=== PATIENT | female | born 1970 | race Caucasian/White ===

== ENCOUNTER → 2016-11-01 | Outpatient (CLI) | payer OTHER ==
--- NOTE | 2016-11-02 04:31 | REP ---
Clinical: Pain . Technique: AP, lateral, bilateral oblique views 1st digit . Findings: The osseous structures and joint spaces are intact and normal. There is no evidence for acute fracture or dislocation. Surrounding soft tissues are unremarkable. No subcutaneous emphysema or radiodense foreign body. Impression: Normal examination. No acute fracture or dislocation. Signed by Mando Travis MD 11/02/2016 04:23 A
== END ==
LOC: M WUC 18:26
PROVIDERS: ATTEND Physician Assistant
DX: M25.541 Pain in joints of right hand (principal)

== ENCOUNTER → 2016-11-14 | Outpatient (CLI) | payer OTHER ==
[2016-11-14 17:33] LABS: BASO % 0.2 % (0.0-1.0); EOS # 0.2 K/mm3 (0.0-0.50); EOS % 1.8 % (0.0-3.0); LARGE UNSTAINED CELL # 0.2 K/mm3 (0.0-0.4); LARGE UNSTAINED CELL % 2.5 % (0.0-4.0); LYMPH % 21.6 % (24.0-44.0); MEAN CORPUSCULAR HEMOGLOBIN 27.2 pg (27.0-33.0); MEAN CORPUSCULAR HGB CONC 32.4 g/dl (32.0-36.5); MEAN CORPUSCULAR VOLUME 84.1 fl (80.0-96.0); MONO # 0.5 K/mm3 (0.0-0.8); MONO % 5.4 % (0.0-5.0); NEUTROPHILS # 6.4 K/mm3 (1.8-7.7); NEUTROPHILS % 68.5 % (36.0-66.0); PLATELET COUNT, AUTOMATED 345 k/mm3 (150-450); RED CELL DISTRIBUTION WIDTH 15.4 % (11.5-14.5); RETIC HEMOGLOBIN CONTENT CHr 27.5 PG (24-36); RETICULOCYTE ABSOLUTE ADVIA212 104 x10(9)/L (17-77); WHITE BLOOD COUNT 9.4 K/mm3 (4.0-10.0)
[2016-11-14 18:25] LABS: ANION GAP 7 MEQ/L (8-16); BLOOD UREA NITROGEN 8 MG/DL (7-18); CALCIUM LEVEL 8.2 MG/DL (8.5-10.1); CARBON DIOXIDE LEVEL 27 MEQ/L (21-32); CHLORIDE LEVEL 105 MEQ/L (98-107); CHOLESTEROL LEVEL 172 MG/DL (<200); CREATININE FOR GFR 0.64 MG/DL (0.55-1.02); FERRITIN 5 NG/ML (8-252); GLOMERULAR FILTRATION RATE > 60.0 (>58); GLUCOSE, FASTING 88 MG/DL (70-105); PERCENT SATURATION 4.7 % (13.2-37.4); POTASSIUM SERUM 4.2 MEQ/L (3.5-5.1); SODIUM LEVEL 139 MEQ/L (136-145); TOTAL IRON BINDING CAPACITY 486 UG/DL (250-450); TRIGLYCERIDES LEVEL 75 MG/DL (<150)
== END ==
LOC: M LAB 16:33
PROVIDERS: ATTEND Physician Assistant Medical
DX: Z00.00 Encounter for general adult medical examination without abnormal findings (principal)

== ENCOUNTER → 2016-11-23 | Outpatient (CLI) | payer OTHER ==
--- NOTE | 2016-11-23 11:33 | REP ---
Clinical: Decreased range of motion and impingement syndrome. Technique: Internal rotation, external rotation, and Y view. Findings: Very mild cortical irregularity at the acromion process and acromioclavicular joint is appreciated. The glenohumeral joint is intact and relatively normal. The subacromial space is normal. No periarticular calcifications are identified. Impression: Mild age-related changes. No periarticular calcifications, tendinous calcifications, or narrowing of the subacromial space. Signed by Mando Travis MD 11/23/2016 11:24 A
== END ==
LOC: M WUC 11:06
PROVIDERS: ATTEND Physician Assistant Medical
DX: M75.41 Impingement syndrome of right shoulder (principal); M19.011 Primary osteoarthritis, right shoulder

== ENCOUNTER 2017-08-30 00:19 | Emergency (ER) | payer OTHER ==
[2017-08-30] MEDS: hydroCHLOROthiazide 25 MG TAB PO (01:06)
[2017-08-30] MEDS: LISINOPRIL 20 MG TAB PO (01:06)
== END 2017-08-30 02:13 | disposition home or self-care (01) ==
LOC: M ED 00:19
DX: H61.22 Impacted cerumen, left ear (principal); J06.9 Acute upper respiratory infection, unspecified; I10 Essential (primary) hypertension; F17.210 Nicotine dependence, cigarettes, uncomplicated; Z79.84 Long term (current) use of oral hypoglycemic drugs; Z79.899 Other long term (current) drug therapy; Z91.19 Patient's noncompliance with other medical treatment and regimen; Z88.1 Allergy status to other antibiotic agents
CPT/HCPCS: 99283

== ENCOUNTER → 2018-10-21 | Outpatient (CLI) | payer BC ==
[~2018-10-21] MED LIST: ATEN100T; FLON1SPR; LISI-538; LISI20TA3 PO; LISINOP/HCTZ; METF500T13; SERT-155
[2018-10-21 12:21] LABS: BASO % 0.4 % (0.0-1.0); EOS # 0.3 10^3/uL (0.0-0.50); EOS % 2.9 % (0.0-3.0); HEMATOCRIT 45.3 % (36.0-47.0); HEMOGLOBIN 14.1 g/dl (12.0-15.5); LYMPH # 1.3 10^3/uL (1.5-4.5); LYMPH % 14.8 % (24.0-44.0); MEAN CORPUSCULAR HEMOGLOBIN 26.4 pg (27.0-33.0); MEAN CORPUSCULAR HGB CONC 31.1 g/dl (32.0-36.5); MEAN CORPUSCULAR VOLUME 84.7 fl (80.0-96.0); MONO # 0.8 10^3/uL (0.0-0.8); MONO % 8.8 % (0.0-5.0); NEUTROPHILS # 6.2 10^3/uL (1.8-7.7); NEUTROPHILS % 72.7 % (36.0-66.0); PLATELET COUNT, AUTOMATED 293 10^3/uL (150-450); RED BLOOD COUNT 5.35 10^6/uL (4.00-5.40); WHITE BLOOD COUNT 8.5 10^3/uL (4.0-10.0)
[2018-10-21 12:52] LABS: ALBUMIN 3.3 GM/DL (3.2-5.2); ALT/SGPT 25 U/L (12-78); BILIRUBIN,TOTAL 0.2 MG/DL (0.2-1.0); BLOOD UREA NITROGEN 11 MG/DL (7-18); CALCIUM LEVEL 8.7 MG/DL (8.5-10.1); CARBON DIOXIDE LEVEL 26 MEQ/L (21-32); CHLORIDE LEVEL 107 MEQ/L (98-107); CREATININE FOR GFR 0.84 MG/DL (0.55-1.30); GLOMERULAR FILTRATION RATE > 60.0 (>58); GLUCOSE, FASTING 210 MG/DL (70-100); POTASSIUM SERUM 4.6 MEQ/L (3.5-5.1); SODIUM LEVEL 138 MEQ/L (136-145); TOTAL PROTEIN 6.8 GM/DL (6.4-8.2)
== END ==
LOC: M WUC 08:53
PROVIDERS: ATTEND Physician Assistant
DX: I10 Essential (primary) hypertension (principal)

== ENCOUNTER 2019-03-22 14:49 | Inpatient (IN) | payer BC ==
[~2019-03-22] VITALS: Ht 152.4 cm; Wt 105.7 kg
[~2019-03-22 14:49] MED LIST changes: +LISI20TA20 PO; -LISI20TA3 PO
[2019-03-22] MEDS ORDERED: APAP325T4 PO (15:04)
[2019-03-22] MEDS ORDERED: NAPR220C14 PO (15:04)
[2019-03-22 15:17] LABS: BASO % 0.3 % (0.0-1.0); EOS # 0.2 10^3/uL (0.0-0.5); EOS % 2.1 % (0.0-3.0); HEMATOCRIT 43.1 % (36.0-47.0); LYMPH # 2.2 10^3/uL (1.5-5.0); LYMPH % 19.4 % (24.0-44.0); MEAN CORPUSCULAR HEMOGLOBIN 28.7 pg (27.0-33.0); MEAN CORPUSCULAR HGB CONC 32.5 g/dl (32.0-36.5); MEAN CORPUSCULAR VOLUME 88.3 fl (80.0-96.0); MONO # 0.8 10^3/uL (0.0-0.8); MONO % 6.8 % (0.0-5.0); NEUTROPHILS # 8.2 10^3/uL (1.5-8.5); NEUTROPHILS % 71.1 % (36.0-66.0); PLATELET COUNT, AUTOMATED 346 10^3/uL (150-450); RED BLOOD COUNT 4.88 10^6/uL (4.00-5.40); WHITE BLOOD COUNT 11.5 10^3/uL (4.0-10.0)
[2019-03-22] MEDS ORDERED: LABETALOL HCL 100 MG/20 ML VIAL IV STA (15:22)
[2019-03-22] MEDS ORDERED: LABETALOL 100 MG TAB PO ONE (15:30)
[2019-03-22] MEDS: LABETALOL HCL 100 MG/20 ML VIAL IV PRN ×4 (16:15→17:16)
[2019-03-22 16:24] LABS: BLOOD UREA NITROGEN 9 MG/DL (7-18); CALCIUM LEVEL 8.6 MG/DL (8.5-10.1); CARBON DIOXIDE LEVEL 23 MEQ/L (21-32); CHLORIDE LEVEL 108 MEQ/L (98-107); CK-MB VALUE MASS 3.6 NG/ML (<3.6); CPK CREATINE PHOSPHOKINASE 79 U/L (26-192); ETHYL ALCOHOL (ETHANOL) < 0.003 % (0.000-0.010); GLOMERULAR FILTRATION RATE > 60.0 (>58); GLUCOSE, FASTING 160 MG/DL (70-100); MB/CK RELATIVE INDEX 4.56 (< OR =4); POTASSIUM SERUM 4.3 MEQ/L (3.5-5.1); SODIUM LEVEL 139 MEQ/L (136-145); TROPONIN I 0.61 NG/ML (< 0.10)
[2019-03-22] MEDS ORDERED: ASPIRIN 81 MG CHEW TABLET PO ONE (16:45)
[2019-03-22 17:46] LABS: CK-MB VALUE MASS 3.3 NG/ML (<3.6); MB/CK RELATIVE INDEX 5.59 (< OR =4); TROPONIN I 0.66 NG/ML (< 0.10)
[2019-03-22 17:58] LABS: AMPHETAMINES LEVEL URINE NEGATIVE (NEGATIVE); BARBITURATES URINE NEGATIVE (NEGATIVE); BENZODIAZEPINES URINE NEGATIVE (NEGATIVE); CANNABINOIDS URINE POSITIVE (NEGATIVE); COCAINE METABOLITE URINE NEGATIVE (NEGATIVE); METHADONE URINE NEGATIVE (NEGATIVE); OPIATES URINE NEGATIVE (NEGATIVE); PHENCYCLIDINE URINE NEGATIVE (NEGATIVE); TOTAL PROTEIN,RANDOM URINE 39.5 MG/DL (0.0-12.0)
[2019-03-22] MEDS ORDERED: BENA25CA4 PO (18:14)
[2019-03-22] MEDS ORDERED: [UNRECOGNIZED DRUG - CODE] PO (18:14)
[2019-03-22] MEDS ORDERED: MOM 30ML SUSPENSION UDC PO PRN (18:45)
[2019-03-22] MEDS ORDERED: **hydrALAZINE** 10 MG TAB PO ONE (18:45)
[2019-03-22] MEDS ORDERED: LABETALOL HCL 100 MG/20 ML VIAL IV PRN (18:45)
[2019-03-22] MEDS ORDERED: diphenhydrAMINE 25 MG CAP PO PRN (18:45)
[2019-03-22] MEDS ORDERED: MAALOX 30 ML SUSP *UDC PO PRN (18:45)
[2019-03-22] MEDS ORDERED: ACETAMINOPHEN TAB 650MG DOSE (2X325MG) PO PRN (18:45)
--- NOTE | 2019-03-22 19:48 | REP ---
REASON: Chest pain. The technique utilized in obtaining the radiograph has magnified the cardiac silhouette and accentuated the interstitial markings. The superior mediastinal structures are midline. The cardiac silhouette is unremarkable in size, shape, and position. The diaphragmatic surfaces of the lungs are regular, and the costophrenic angles are clear. The pulmonary quijano are clear. The imaged osseous structures are intact. IMPRESSION: There is no acute cardiopulmonary disease. Electronically Signed by Ming Conroy DO 03/23/2019 10:44 A
[2019-03-22] MEDS: CALCIPOTRIENE CREAM 0.005% 60GM TOP SCH (21:00)
[2019-03-22] MEDS: HumaLOG INSULIN (NovoLOG) PER UNIT SC SCH (21:00)
[2019-03-22] MEDS: BETAMETHASONE DIP 0.05% OINT 15 GM TOP SCH (21:00)
[2019-03-22] MEDS: DOCUSATE SODIUM 100 MG CAP PO SCH (21:00)
[2019-03-22 21:26] LABS: HEMOGLOBIN A1c 7.7 %
[2019-03-22] MEDS: HEPARIN SOD (PORCINE) 5000 UNITS/ML VIAL SC SCH (21:30)
[2019-03-22] MEDS: LABETALOL 100 MG TAB PO SCH (21:32)
[2019-03-22 22:00] VITALS: O2SAT 96
[2019-03-22] MEDS ORDERED: NS 500 ML IV PRN (22:30)
[2019-03-22] MEDS ORDERED: NS 500 ML IV ONE ×2 (22:30→23:30)
[2019-03-22 23:00] VITALS: O2SAT 96
[2019-03-22 23:30] VITALS: BP 148/65
[2019-03-23] VITALS (30 sets, daily range): BP systolic 176–221; BP diastolic 82–102; PULSE 82; O2SAT 90–98
[2019-03-23] MEDS ORDERED: MORPHINE 4 MG/ML 1ML VIAL/SYRINGE (J2270) IV ONE (02:15)
--- NOTE | 2019-03-23 04:02 | HPEPDOC ---
General Date of Admission 03/22/19 Date of Service: Mar 22, 2019 Primary Care Physician: Azeb Vazquez Other Providers Dr. Carmine Han Satellite Dish Technician consult/manage Attending Physician: BRADLEY HELTON MD Chief Complaint The patient is a 48-year-old female admitted with a reason for visit of High B/P. Source: Patient, RN/MD, RN notes reviewed Exam Limitations: No limitations Timing/Duration: 24 hours, Changing over time Severity: Moderate Associated Symptoms: Chest Pain, Loss of appetite, Nausea, Dizziness History of Present Illness 48-year-old female arrives at [facility] ED via EMS on stretcher with complaints of worsening chest pain, pressure that started last night when she was at work. She states that she took an Aleve when she felt the pressure last night, which usually alleviates her pain, but he did not. The pain radiated to her shoulder during the night after she made it home from work and she reports that she cannot sleep more than 3 hours as the pain intensified. She then decided to call 911 for help and was brought into the ED. She denies having vomiting, heart palpitations, numbness and tingling in her hands and feet, and loss of consciousness. She has significant medical history of essential hyp ertension, seasonal rhinitis, diabetes mellitus, anxiety and depression, nicotine use, and GERD. Upon arrival in ED, patient's blood pressure 245/113, she was given labetalol 20 mg IV push, EKG shows incomplete right bundle branch block. In reviewing patient's chart, she has been prescribed atenolol, lisinopril/hydrochlorothiazide, metformin, sertraline, for her chronic comorbidities. Patient has not taken any medications for several months. She just decided not to take them. Per patient report. Due to these multiple factors and patient's current status. Cardiac consult with Dr. Carmine Han for recommendations, patient will be admitted to PCU telemetry and continue pulse oximetry for Hypertensive crisis under hospitalist services for ongoing evaluation. Home Medications Scheduled PRN Acetaminophen (Acetaminophen) 325 Mg Tablet, 975 MG PO Q6H PRN for BACK PAIN, (Reported) Diphenhydramine HCl (Benadryl) 25 Mg Capsule, 50 MG PO QHS PRN for SLEEP, (Reported) Naproxen Sodium (Naproxen Sodium) 220 Mg Tablet, 440 MG PO DAILY PRN for BACK PAIN, (Reported) Allergies Coded Allergies: erythromycin base (Verified Adverse Reaction, Unknown, nausea, vomiting, 03/22/19) Past Medical History Medical History essential hypertension, seasonal rhinitis, diabetes mellitus, anxiety and depression, nicotine use, and GERD. Surgical History Tubal ligation, cone biopsy, cholecystectomy Family History Significant Family History: Diabetes (Mom), Heart disease ( Mom [place] at age 52), Hypertension (Mom) Social History * Smoker: current smoker, less than 1 pack/day (3/4 pack of cigarettes per day), cigarettes Drugs: marijuana Pets in the home: Dog(s) (1), Cat(s) (5) Psychosocial History: Anxiety, Rhys SI and HI, Depression A-FIB/CHADSVASC A-FIB History Current/History of A-Fib/PAF?: No Review of Systems Constitutional: Reports: Malaise Eyes: Reports: Pain ENT: Reports: Head Aches Skin: Reports: Rash (bilateral forearms, red, thick), Itching, Dry Pulmonary: Reports: Cough Cardiovascular: Reports: Chest Pain, Other Symptoms (, chest pressure) Gastrointestinal: Reports: Nausea Genitourinary: Denies: Dysuria, Frequency, Incontinence, Hematuria, Retention, Other Symptoms Hematologic: Denies: Bruising, Bleeding Excessively, Petecchia, Purpura, Enlarged Lymph Nodes, Other Hematologic Endocrine: Denies: Polydipsia, Polyphagia, Polyuria, Heat Intolerance, Cold Intolerance, Other Endocrine Sx Musculoskeletal: Reports: Back Pain Psych: Reports: Anxiety, Depression Physical Examination General Exam: Positive: Alert, Cooperative, Moderate Distress Eye Exam: Positive: PERRLA, Conjunctiva & lids normal, Sclera icteric ENT Exam: Positive: Atraumatic, Mucous membr. moist/pink, Pharynx Normal, Tongue Midline, Nares Patent, Other ENT (, top teeth missing. Remote bottom teeth rotten black, some missing multiple dental caries) Neck Exam: Positive: Supple, +2 carotid pulse wo bruit Chest Exam: Positive: Wheezing, Diminished ( right lower lobe) Heart Exam: Positive: Rate Normal, Normal S1, Normal S2 Abdomen Exam: Positive: Normal bowel sounds, Soft, Other (protuberant) Extremity Exam: Positive: Normal pulses Skin Exam: Positive: Nl turgor and temperature, Rash (plaque psoriasis, bilateral upper arms,), Pruritus Neuro Exam: Positive: Normal Gait, Normal Speech, Cranial Nerves 3-12 NL Psych Exam: Positive: Anxiety, Oriented x 3 Vital Signs Vital Signs Date Time Temp Pulse Resp B/P (MAP) Pulse Ox O2 Delivery O2 Flow Rate FiO2 03/22/19 18:51 74 170/98 (122) 95 Room Air 03/22/19 14:49 98.4 20 Laboratory Data Labs 24H Laboratory Tests 2 03/22/19 15:07: Immature Granulocyte % (Auto) 0.3, White Blood Count 11.5H, Red Blood Count 4.88, Hemoglobin 14.0, Hematocrit 43.1, Mean Corpuscular Volume 88.3, Mean Corpuscular Hemoglobin 28.7, Mean Corpuscular Hemoglobin Concent 32.5, Red Cell Distribution Width 14.8H, Platelet Count 346, Neutrophils (%) (Auto) 71.1H, Lymphocytes (%) (Auto) 19.4L, Monocytes (%) (Auto) 6.8H, Eosinophils (%) (Auto) 2.1, Basophils (%) (Auto) 0.3, Neutrophils # (Auto) 8.2, Lymphocytes # (Auto) 2.2, Monocytes # (Auto) 0.8, Eosinophils # (Auto) 0.2, Basophils # (Auto) 0.0, Nucleated Red Blood Cells % (auto) 0.0, Anion Gap 8, Glomerular Filtration Rate > 60.0, Blood Urea Nitrogen 9, Creatinine 0.80, Sodium Level 139, Potassium Leve l 4.3, Chloride Level 108H, Carbon Dioxide Level 23, Calcium Level 8.6, Total Creatine Kinase 79, Creatine Kinase MB 3.6, Creatine Kinase MB Relative Index 4.56H, Troponin I 0.61H, Thyroid Stimulating Hormone (TSH) 1.460, Ethyl Alcohol Level < 0.003 03/22/19 17:07: Total Creatine Kinase 59, Creatine Kinase MB 3.3, Creatine Kinase MB Relative Index 5.59H, Troponin I 0.66H 03/22/19 17:28: Urine Random Total Protein 39.5H, Urine Amphetamines Screen NEGATIVE, Urine Benzodiazepines Screen NEGATIVE, Urine Opiates Screen NEGATIVE, Urine Methadone Screen NEGATIVE, Urine Barbiturates Screen NEGATIVE, Urine Phencyclidine Screen NEGATIVE, Urine Cocaine Metabolite Screen NEGATIVE, Urine Cannabinoids Screen POSITIVEH CBC/BMP Laboratory Tests 03/22/19 15:07 Red Blood Count 4.88, Mean Corpuscular Volume 88.3, Mean Corpuscular Hemoglobin 28.7, Mean Corpuscular Hemoglobin Concent 32.5, Red Cell Distribution Width 14.8 H, Neutrophils (%) (Auto) 71.1 H, Lymphocytes (%) (Auto) 19.4 L, Monocytes (%) (Auto) 6.8 H, Eosinophils (%) (Auto) 2.1, Basophils (%) (Auto) 0.3, Neutrophils # (Auto) 8.2, Lymphocytes # (Auto) 2.2, Monocytes # (Auto) 0.8, Eosinophils # (Auto) 0.2, Basophils # (Auto) 0.0, Calcium Level 8.6, Total Creatine Kinase 79 Echocardiogram EKG sinus rhythm with possible right ventricular delay conduction, possible anterior myocardial infarction. Ventricular rate 91, AK interval 172, QRS 123, PRT axis 35 75 55. Assessment/Plan 48-year-old female arrives at [facility] ED via EMS on stretcher with complaints of worsening chest pain, pressure that started last night when she was at work. She states that she took an Aleve when she felt the pressure last night, which usually alleviates her pain, but he did not. The pain radiated to her shoulder during the night after she made it home from work and she reports that she cannot sleep more than 3 hours as the pain intensified. She then decided to call 911 for help and was brought into the ED. Hypertensive Crisis/Uncontrolled -Acute Dr. Marialuisa Han Cardiology consult/manage (Thank you Dr. Lou for accepting the consult for our patient and I thank you in advance for your recommendations).*Spoke to Dr. Han at 1833 he will see patient on 03/23/19 in the AM. Telemetry with continuous pulse oximetry Labs: CBC,CMP, Urine toxicology screen, Trending Troponin's, Cardiac profile, repeat EKG x 2 (03/23/19&03/24/19), FS Glucose 136 at bedside, CK-repeat Monitor Blood pressure and take Manual BP (blood pressure reads in both arms for BP >160/100). GOAL SBP FOR FIRST 48 HOURS 180-190 (10-20% OF ARRIVAL SBP 245). Labetalol 20 mg slow IVP for SBP >190 keep SBP (180-190) x 48 hours Labetalol 50 mg Po q 12 hours; then 175-180 gradually decreasing patients BP to reduce risk for ischemic stroke ASA EC 325 mg Po daily, Apresoline 20 mg Po as needed for SBP >170 Echocardiogram in AM, BNP Initiate Bowel regimen, multivitamin Hypoxia-Acute Supplemental O2-2Liters per nasal cannula with goal O2 saturation 88-92% Asthma Uncontrolled-Chronic DuoNeb nebulizer treatment q 6 hours prn shortness of breath, coughing, and or wheezing Angina Pectoris (Chest Pain)-Acute Morphine Sulphate 2 mg IV Push slow q 4 hours s needed Nitro Paste 1/4 strip Labs: Lactic Acid, Mag, Phos Depression with Anxiety-Chronic Restart patient on Sertraline but at a lower dose than 100mg daily. Start at 25 mg po daily x 2 weeks then gradually increase. Patient would benefit from Psychiatric referral for medication management. PHQ2 4, PHQ 9 17, VICKI 7 17 (Positive for Depression and Anxiety). Need Outpatient counseling Diabetes Mellitus Type II-Chronic POC Glucose AC/HS Sliding scale Insulin AC/HS Plaque Psoriasis-Chronic- Topical Betamethasone Dipro 0.05% ointment apply daily x 14 days then will re- assess. If no improvement then twice a day. F/U with new PCP once you have established care with one. GERD-Chronic Protonix DR 40 mg Po daily Seasonal Allergic Rhinitis-Chronic Flonase 50 mcg 1 spray each nostril twice a day; saline gel apply small amount to each nares QID as needed for moisture; Loratadine 10 mg PO daily Nicotine abuse-Chronic Discussed smoking cessation with patient [id number] 5 minutes. Discussed the pros and cons of nicotine, educated patient on the effects of nicotine on heart causing heart disease, increased blood pressure, increased risk for heart attack and stroke, more so when women who are obese and with positive family history of heart disease and high cholesterol. Increased risk of lung disease such as lung cancer, COPD and/or asthma each cigarette smoke. For the amount of time in years. No patient currently smokes three fourths pack cigarettes daily. In-house smoking affects pain inhibits pain medication requirement, more pain medication in order for it to be effective at 16 attested receptor sites. Patient agrees to use nicotine patch while inpatient. Currently, is considering to stop smoking she tried Chantix and had horrible night terrors of killing family members. Nicotine patch 21 mcg topically apply daily. Prognosis: Fair DVT Prophylaxis: Heparin SC 5000 TID; SCD's alternating with TEDs BLE Discharge: Pending Problems (1) Hypertensive emergency without congestive heart failure Status: Acute Plan / VTE VTE Prophylaxis Ordered?: Yes VTE Exclusion Mechanical Proph: Maverick Lower Ex DVT VTE Exclusion Pharmacological: N/A:VTE Prophy Ordered Plan IVF: Initiate (bolus 1 L normal saline) Diet: Advance Activity: Encourage Ambulation Pt and Family Services: Home Care Diagnostics: Check Labs, Repeat Labs in AM, Xrays, TTE Anticipated Discharge: Home T[place] Mar 22, 2019 18:55
[2019-03-23] MEDS ORDERED: SODIUM CHLORIDE 0.9% NASAL GEL 15GM (AYR) PRN (04:15)
[2019-03-23] MEDS: HEPARIN SOD (PORCINE) 5000 UNITS/ML VIAL SC SCH ×3 (05:45→22:00)
[2019-03-23 05:49] LABS: HEMATOCRIT 39.3 % (36.0-47.0); HEMOGLOBIN 12.6 g/dl (12.0-15.5); MEAN CORPUSCULAR HEMOGLOBIN 28.9 pg (27.0-33.0); MEAN CORPUSCULAR HGB CONC 32.1 g/dl (32.0-36.5); MEAN CORPUSCULAR VOLUME 90.1 fl (80.0-96.0); PLATELET COUNT, AUTOMATED 290 10^3/uL (150-450); RED BLOOD COUNT 4.36 10^6/uL (4.00-5.40); WHITE BLOOD COUNT 9.2 10^3/uL (4.0-10.0)
[2019-03-23 06:25] LABS: ALBUMIN 2.7 GM/DL (3.2-5.2); ALT/SGPT 23 U/L (12-78); BILIRUBIN,TOTAL 0.3 MG/DL (0.2-1.0); BLOOD UREA NITROGEN 12 MG/DL (7-18); CALCIUM LEVEL 8.2 MG/DL (8.5-10.1); CARBON DIOXIDE LEVEL 26 MEQ/L (21-32); CHLORIDE LEVEL 108 MEQ/L (98-107); CHOLESTEROL LEVEL 150 MG/DL (<200); CHOLESTEROL RISK RATIO 4.545 (<5); CREATININE FOR GFR 0.73 MG/DL (0.55-1.30); GLOMERULAR FILTRATION RATE > 60.0 (>58); GLUCOSE, FASTING 128 MG/DL (70-100); HDL CHOLESTEROL 33 MG/DL (>40); LDL CHOLESTEROL 85 MG/DL (<100); MAGNESIUM LEVEL 1.9 MG/DL (1.8-2.4); NON-HDL-C 117 MG/DL; POTASSIUM SERUM 4.3 MEQ/L (3.5-5.1); SODIUM LEVEL 139 MEQ/L (136-145); TOTAL PROTEIN 6.5 GM/DL (6.4-8.2); TRIGLYCERIDES LEVEL 160 MG/DL (<150)
[2019-03-23 07:55] LABS: NT-PRO BNP 1018 PG/ML (<125)
[2019-03-23] MEDS ORDERED: amLODIPine 5 MG TAB PO SCH (08:00)
[2019-03-23] MEDS: DOCUSATE SODIUM 100 MG CAP PO SCH ×2 (08:46→21:00)
[2019-03-23] MEDS: SERTRALINE HCL 25 MG TABLET PO SCH (08:46)
[2019-03-23] MEDS: ASPIRIN ENTERIC 325 MG TAB PO SCH (08:46)
[2019-03-23] MEDS: NICOTINE 21MG/24HR 1 EA TRANSDERMAL TD SCH (08:47)
[2019-03-23] MEDS: HumaLOG INSULIN (NovoLOG) PER UNIT SC SCH ×4 (08:48→21:00)
[2019-03-23] MEDS: CALCIPOTRIENE CREAM 0.005% 60GM TOP SCH ×2 (08:49→21:57)
[2019-03-23] MEDS: LABETALOL 100 MG TAB PO SCH (09:00)
[2019-03-23] MEDS ORDERED: LISINOPRIL 10 MG TAB PO SCH (10:45)
[2019-03-23] MEDS ORDERED: hydroCHLOROthiazide 12.5 MG CAPSULE PO SCH ×2 (11:00→18:30)
[2019-03-23] MEDS ORDERED: SLF 3 ML SYR IV PRN (11:00)
[2019-03-23] MEDS: SLF 3 ML SYR IV SCH ×2 (14:31→22:00)
[2019-03-23] MEDS: LISINOPRIL 40 MG TAB PO SCH (18:53)
[2019-03-23] MEDS: BETAMETHASONE DIP 0.05% OINT 15 GM TOP SCH (21:57)
[2019-03-23] MEDS ORDERED: amLODIPine 5 MG TAB PO ONE (23:30)
--- NOTE | 2019-03-23 23:41 | IPNPDOC ---
Text Note Date of Service The patient was seen on 03/23/19. NOTE Subjective: Feels better than yesterday No chest pain, no shortness of breath, no abdominal pain, no headache or vision changes Rest of 12 point review of systems was negative. Objective: General: Morbidly obese Skin: Significant plaques with some surrounding erythema on scattered surfaces and coalese in large patches/areas Chest: CTAB Cardiac: RRR, no mrg Abd: Obese, soft, non tender, normoactive sounds Ext: mild edema, WWP Labs" see below, reviewed Imaging: Reviewed Assessment 48-year-old woman who presented to the ED with chest pain/pressure that began at work and found to be in hypertensive emergency with severe hypertension in the setting of medication non compliance with her HTN, DM, psoriasis, GERD, depression and anxiety. Hypertensive emergency: -Given labetalol overnight and some fluids as well, hypertensive this AM, switched to lisinopril 20/HCTZ12.5 will mild effect and return of severe hypertension after a few hours -Will try lisinopril 40/HCTZ25 BID, otherwise will return to labetalol gtt if necessary -Cardiology consulted, agrees it is due to non compliance -Telemetry with continuous pulse oximetry -follow up Echocardiogram -nitro paste / strip for pain PRN Hypoxemia -Supplemental O2-2Liters per nasal cannula with goal O2 saturation 88-92% -May require a loop diuretic for volume overload Asthma Uncontrolled-Chronic DuoNeb nebulizer treatment q 6 hours prn shortness of breath, coughing, and or wheezing Depression with Anxiety-Chronic Was restarted on Sertraline but at a lower dose than 100mg daily. Start at 25 mg po daily x 2 weeks then gradually increase. Patient would benefit from Psychiatric referral for medication management. PHQ2 4, PHQ 9 17, VICKI 7 17 (Positive for Depression and Anxiety). Need Outpatient counseling Diabetes Mellitus Type II-Chronic POC Glucose AC/HS Sliding scale Insulin AC/HS Plaque Psoriasis-Chronic- Topical Betamethasone Dipro 0.05% ointment apply daily x 14 days then will re- assess. If no improvement then twice a day. F/U with new PCP once you have established care GERD-Chronic Protonix DR 40 mg Po daily Seasonal Allergic Rhinitis-Chronic Flonase 50 mcg 1 spray each nostril twice a day; saline gel apply small amount to each nares QID as needed for moisture; Loratadine 10 mg PO daily Nicotine abuse-Chronic Discussed smoking cessation with patient for 10 minutes while we discussed non compliance of medications and the events that led her to this moment. She reported chantix having precipitated night terrors prior and so she stopped. Nicotine patch 21 mcg topically apply daily. Prognosis: Fair DVT Prophylaxis: Heparin SC 5000 TID; SCD's alternating with TEDs BLE Discharge: Pending clinical improvement VS,Fishbone, I+O VS, Fishbone, I+O Laboratory Tests 03/23/19 05:42 Red Blood Count 4.36, Mean Corpuscular Volume 90.1, Mean Corpuscular Hemoglobin 28.9, Mean Corpuscular Hemoglobin Concent 32.1, Red Cell Distribution Width 15.0 H, Calcium Level 8.2 L, Aspartate Amino Transf (AST/SGOT) 27, Alanine Aminotransferase (ALT/SGPT) 23, Alkaline Phosphatase 94, Total Bilirubin 0.3, Triglycerides Level 160 H, LDL Cholesterol 85, Total Protein 6.5, Albumin 2.7 L Vital Signs Date Time Temp Pulse Resp B/P (MAP) Pulse Ox O2 Delivery O2 Flow Rate FiO2 03/23/19 20:30 185/98 (127) 03/23/19 20:00 97.3 84 20 96 03/23/19 18:00 Room Air 03/23/19 05:00 2.0 I&O- Last 24 Hours up to 6 AM 03/23/19 06:00 Intake Total 1120 ml Output Total 225 ml Balance 895 ml KERRI JOHNSTON MD Mar 23, 2019 23:41
[2019-03-24] VITALS (24 sets, daily range): BP systolic 140–228; BP diastolic 58–98; O2SAT 87–98
--- NOTE | 2019-03-24 04:21 | ECGEPIP ---
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
--- NOTE | 2019-03-24 04:24 | ECGEPIP ---
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
[2019-03-24 05:39] LABS: HEMATOCRIT 40.1 % (36.0-47.0); HEMOGLOBIN 12.8 g/dl (12.0-15.5); MEAN CORPUSCULAR HEMOGLOBIN 27.8 pg (27.0-33.0); MEAN CORPUSCULAR HGB CONC 31.9 g/dl (32.0-36.5); MEAN CORPUSCULAR VOLUME 87.2 fl (80.0-96.0); PLATELET COUNT, AUTOMATED 332 10^3/uL (150-450)
[2019-03-24 05:55] LABS: BLOOD UREA NITROGEN 9 MG/DL (7-18); CALCIUM LEVEL 8.5 MG/DL (8.5-10.1); CARBON DIOXIDE LEVEL 24 MEQ/L (21-32); CHLORIDE LEVEL 104 MEQ/L (98-107); CREATININE FOR GFR 0.73 MG/DL (0.55-1.30); GLOMERULAR FILTRATION RATE > 60.0 (>58); GLUCOSE, FASTING 147 MG/DL (70-100); POTASSIUM SERUM 3.8 MEQ/L (3.5-5.1); SODIUM LEVEL 137 MEQ/L (136-145)
[2019-03-24] MEDS: SLF 3 ML SYR IV SCH ×3 (07:29→22:33)
[2019-03-24] MEDS: HEPARIN SOD (PORCINE) 5000 UNITS/ML VIAL SC SCH ×3 (07:29→22:33)
[2019-03-24] MEDS ORDERED: amLODIPine 10 MG TAB PO ONE (08:00)
[2019-03-24] MEDS: SERTRALINE HCL 25 MG TABLET PO SCH (08:13)
[2019-03-24] MEDS: LISINOPRIL 40 MG TAB PO SCH (08:13)
[2019-03-24] MEDS: HumaLOG INSULIN (NovoLOG) PER UNIT SC SCH ×4 (08:14→21:00)
[2019-03-24] MEDS: CALCIPOTRIENE CREAM 0.005% 60GM TOP SCH ×2 (08:14→21:06)
[2019-03-24] MEDS: DOCUSATE SODIUM 100 MG CAP PO SCH ×2 (08:14→21:00)
[2019-03-24] MEDS: ASPIRIN ENTERIC 325 MG TAB PO SCH (08:14)
[2019-03-24] MEDS: NICOTINE 21MG/24HR 1 EA TRANSDERMAL TD SCH (08:14)
[2019-03-24] MEDS ORDERED: hydrALAZINE INJ 20 MG/ML VIAL IV STA ×2 (08:30→11:54)
--- NOTE | 2019-03-24 08:41 | ECGEPIP ---
[facility] Test Date: 2019-03-23 Pat Name: RIANNA HAYES Department: Room: [place] [address] Gender: Female Prompt Care Rn: PETRA : 1970 Requested By: TWIN SALVADOR Order Number: [id number] Reading MD: Can Jiang Measurements Intervals [place] Rate: 77 P: 59 FL: 181 QRS: 78 QRSD: 117 T: 97 QT: 410 QTc: 467 Interpretive Statements SINUS RHYTHM Incomplete right bundle branch block NONSPECIFIC T-WAVE ABNORMALITY Similar to tracing done 03-22-19 Electronically Signed on 03-24-2019 8:41:31 EDT by Can Jiang
[2019-03-24] MEDS ORDERED: LABETALOL 100 MG TAB PO SCH (09:00)
[2019-03-24] MEDS ORDERED: FUROSEMIDE 40 MG/4 ML VIAL (J1940) IV ONE ×2 (09:00→16:00)
[2019-03-24] MEDS ORDERED: amLODIPine 5 MG TAB PO SCH (09:00)
[2019-03-24] MEDS ORDERED: hydroCHLOROthiazide 25 MG TAB PO SCH (09:00)
--- NOTE | 2019-03-24 09:10 | ECGEPIP ---
[facility] Test Date: 2019-03-24 Pat Name: RIANNA HAYES Department: Room: [place] [address] Gender: Female Relationship Advisor: PETRA : 1970 Requested By: TWIN SALVADOR Order Number: [id number] Reading MD: Can Jiang Measurements Intervals [place] Rate: 66 P: 49 NC: 180 QRS: 72 QRSD: 114 T: 85 QT: 448 QTc: 471 Interpretive Statements SINUS RHYTHM INCOMPLETE RIGHT BUNDLE BRANCH BLOCK NONSPECIFIC T-WAVE ABNORMALITY Similar to tracing done 03-23-19 Electronically Signed on 03-24-2019 9:09:52 EDT by Can Jiang
[2019-03-24] MEDS ORDERED: hydrALAZINE INJ 20 MG/ML VIAL IV SCH ×2 (13:00→17:00)
[2019-03-24] MEDS: NITROGLYCERIN 2% OINT 1 GM *U/D* PKT TOP SCH ×3 (13:56→21:00)
--- NOTE | 2019-03-24 14:37 | IPN ---
DATE: 03/24/2019 SUBJECTIVE: The patient denies any chest pain, pressure, or tightness, headaches, change in vision despite blood pressure of 200. She currently does not further evaluation for renal artery stenosis and declined a renal ultrasound with Doppler, saying that she does not her medications at home and that is the major reason why her blood pressure is uncontrolled. 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 Telemetry was unremarkable. OBJECTIVE: PHYSICAL EXAMINATION: VITALS: Temperature 97.1, pulse 69, respiratory rate 18, blood pressure 210/102, 97% on room air. The patient has some psoriatic plaques, erythematous lesions on the face upper extremities, legs, abdomen and back. She is obese with a BMI of 46. Anicteric sclera and no jaundice. She has no use of respiratory accessory muscles. Face is symmetric. No jugular venous distension thyromegaly or carotid bruits. Lungs are clear to auscultation. No wheezes, rales or rhonchi. Heart S1, S2 sinus rhythm. Abdomen is soft and nontender. Nondistended and positive bowel sounds. Extremities, no cyanosis, clubbing or any pitting edema. Skin, patient has erythematous plaque like lesions on her face, upper extremities and lower extremities, chest, back and abdomen. HOSPITAL MEDICATIONS: Amlodipine, minoxidil, hydralazine, Labetalol, aspirin and sertraline, nicotine patch, heparin subcu, Colace, lispro, Dovonex, Tylenol, Milk of mag, Mylanta and Benadryl. LABORATORY DATA: White count 10, hemoglobin 12, hematocrit 40, platelet count 332, sodium 137, potassium 3.8, chloride 104, bicarbonate 24, BUN 9, creatinine 0.73, glucose 147, magnesium 1.9, troponin 0.23 . IMAGING STUDIES: Chest x-ray 03/22/2019 no acute cardiopulmonary disease. ASSESSMENT AND PLAN: This is a 48-year-old female with history of hypertension, diabetes, anxiety, depression, tobacco use, and seasonal rhinitis admitted for hypertensive urgency due to medical noncompliance. Patient complained of chest pressure and tightness. Troponin was minimally elevated at 0.23 with normal total CK and refraction and relative index. EKG showed incomplete right bundle branch block. Similar tracing to admission, 03/23/2019 and 03/22/2019 with poor R wave progressive. ACTIVE ISSUES: 1. Hypertensive urgency currently on Norvasc, minoxidil, nitroglycerin patch, hydralazine, and Labetalol. Patient has refused further evaluation for renal artery stenosis with renal ultrasound with Doppler. She had received lisinopril overnight. 2. Chest pain, most likely secondary to hypertensive urgency. Total CK MB fractions are negative. EKG shows incomplete right bundle branch block which is similar from admission. 3. Morbid obesity, BMI 46.3 complicating her care. 4. Type 2 diabetes , glucose running 123-190 currently on insulin sliding scale. 5. Active tobacco use. Tobacco cessation counseling has been provided 10 minutes, Nicoderm CQ 20 mg daily. 6. Depression on Zoloft 25 mg daily. 7. Chronic psoriasis. Resumed on her topical ointment. 8. History of recreational drug use and marijuana. Patient has been counseling regarding discontinuation of recreational drugs. 9. Metabolic syndrome with controlled hypertension. 10. Obesity, BMI 46. 11. Type 2 diabetes. 12. Hypertension. Lipid profile is within normal limits with low HDL level. DISPOSITION: I will await better blood pressure control and postpone discharge today. MTDD
[2019-03-24] MEDS: LABETALOL 100 MG TAB PO SCH ×2 (16:00→21:00)
[2019-03-24] MEDS ORDERED: hydrALAZINE INJ 20 MG/ML VIAL IV ONE (16:00)
[2019-03-24] MEDS ORDERED: **hydrALAZINE** 10 MG TAB PO ONE (16:00)
[2019-03-24] MEDS ORDERED: MINOXIDIL 2.5 MG TAB PO ONE (17:00)
[2019-03-24] MEDS ORDERED: **hydrALAZINE HCL** 25 MG TAB PO SCH (18:00)
[2019-03-24 20:37] LABS: BLOOD UREA NITROGEN 14 MG/DL (7-18); CALCIUM LEVEL 9.3 MG/DL (8.5-10.1); CARBON DIOXIDE LEVEL 25 MEQ/L (21-32); CHLORIDE LEVEL 104 MEQ/L (98-107); CREATININE FOR GFR 1.02 MG/DL (0.55-1.30); GLOMERULAR FILTRATION RATE > 60.0 (>58); GLUCOSE, FASTING 214 MG/DL (70-100); MAGNESIUM LEVEL 1.9 MG/DL (1.8-2.4); POTASSIUM SERUM 3.9 MEQ/L (3.5-5.1); SODIUM LEVEL 137 MEQ/L (136-145)
[2019-03-24] MEDS ORDERED: MINOXIDIL 2.5 MG TAB PO SCH ×2 (21:00)
[2019-03-24] MEDS: BETAMETHASONE DIP 0.05% OINT 15 GM TOP SCH (21:06)
--- NOTE | 2019-03-24 21:32 | IPN ---
DATE: 03/24/2019 I was called the nurse attending to Mrs. Sung with concern about her blood pressure. She is a morbidly obese middle-aged female who came in with hypertensive urgency. During the day she got numerous medications and at approximately 7 o'clock p.m. blood pressure was only 140/60, he was concerned that giving her additional antihypertensive medications will make her too hypotensive. I instructed him to hold all the evening blood pressure medications and when I came to see the patient at 9:15 p.m., she was in PCU bed in no distress, feeling well. The last documented blood pressure was 180/81, but nurse informed me when he took it manually it was approximately 20 mmHg less. On physical exam, the patient is alert and oriented and appropriate. Her heart rate is in 80s. She is afebrile. Saturation 98% on room air. JVP is not high. Lungs are clear. Good air movement. Heart exam reveals regular rhythm. I do not appreciate any murmur or gallop or rub. Abdomen is soft. She has no peripheral edema. Prominent psoriasis is noted on skin on both upper and lower extremities and torso. LABORATORY DATA: Her CBC today was normal. Basic metabolic panel was normal but for glucose 214. On admission she had mildly elevated troponin at 0.6 and it has been declining. I reviewed her ECGs, she has ECG consistent with sinus rhythm and probable LVH with nonspecific repolarization abnormalities. There was no obvious evolution as such. As far as the medications are concerned, she today received total 15 mg of by mouth amlodipine, 100 mg of labetalol, numerous doses of IV hydralazine, total 80 mg of IV Lasix, 40 mg of lisinopril by mouth and 100 mg of by mouth labetalol. ASSESSMENT/PLAN: Mrs. Sung is a 48-year-old female who is morbidly obese, is diabetic and has longstanding history of hypertension who has not been taking her medications for a long period of time. She came in with hypertensive urgency. She had some symptoms of back pain and had mildly elevated troponin which probably was due to myocardial strain. She has been feeling well essentially since admission. As far as the management of hypertension is concerned, I am really worried about the number of different medications that have been utilized. My recommendation would be to continue lisinopril 40 mg daily. I would add 25 mg of HCTZ and continue 10 mg of amlodipine. On top of it labetalol can be used in both oral or IV form to treat hypertensive spikes. I do not recommend that she is getting IV furosemide. I will also would discourage use of minoxidil until we exhaust current medications. Hydralazine could be used but it would not be my preference in this setting. At this point, I am going to hold all of her evening antihypertensive medications and if her blood pressure should exceed 180 mmHg, will give her either IV or by mouth labetalol. I recommend that she is kept on telemetry. Dr. Han will round on her tomorrow.
[2019-03-25] VITALS (8 sets, daily range): BP systolic 167–180; BP diastolic 77–82; O2SAT 90–95
[2019-03-25] MEDS: NITROGLYCERIN 2% OINT 1 GM *U/D* PKT TOP SCH ×2 (01:00→01:46)
[2019-03-25] MEDS ORDERED: ISOSORBIDE DIN. (ISORDIL) 30 MG TAB PO SCH (06:00)
[2019-03-25] MEDS ORDERED: **hydrALAZINE** 10 MG TAB PO PRN (06:15)
[2019-03-25] MEDS: HEPARIN SOD (PORCINE) 5000 UNITS/ML VIAL SC SCH (06:26)
[2019-03-25] MEDS: SLF 3 ML SYR IV SCH (06:27)
[2019-03-25 06:33] LABS: HEMATOCRIT 47.1 % (36.0-47.0); MEAN CORPUSCULAR HEMOGLOBIN 28.4 pg (27.0-33.0); MEAN CORPUSCULAR HGB CONC 32.5 g/dl (32.0-36.5); MEAN CORPUSCULAR VOLUME 87.5 fl (80.0-96.0); PLATELET COUNT, AUTOMATED 426 10^3/uL (150-450); RED BLOOD COUNT 5.38 10^6/uL (4.00-5.40); WHITE BLOOD COUNT 10.2 10^3/uL (4.0-10.0)
[2019-03-25 06:44] LABS: HEMOGLOBIN 15.3 g/dl (12.0-15.5)
[2019-03-25 06:59] LABS: BLOOD UREA NITROGEN 15 MG/DL (7-18); CALCIUM LEVEL 9.1 MG/DL (8.5-10.1); CARBON DIOXIDE LEVEL 23 MEQ/L (21-32); CHLORIDE LEVEL 104 MEQ/L (98-107); GLOMERULAR FILTRATION RATE > 60.0 (>58); GLUCOSE, FASTING 138 MG/DL (70-100); SODIUM LEVEL 137 MEQ/L (136-145)
[2019-03-25] MEDS ORDERED: LABETALOL 100 MG TAB PO PRN (07:15)
[2019-03-25] MEDS ORDERED: LISI40TA PO (07:33)
[2019-03-25] MEDS ORDERED: HYDR25TAB PO (07:33)
[2019-03-25] MEDS ORDERED: LABE100T36 PO (07:33)
[2019-03-25] MEDS: HumaLOG INSULIN (NovoLOG) PER UNIT SC SCH ×2 (08:00→12:00)
[2019-03-25] MEDS ORDERED: NICO21PAT TD (08:58)
[2019-03-25] MEDS ORDERED: SERT25TA88 PO (08:58)
[2019-03-25] MEDS ORDERED: amLODIPine 10 MG TAB PO SCH (09:00)
[2019-03-25] MEDS ORDERED: LISINOPRIL 40 MG TAB PO SCH (09:00)
[2019-03-25] MEDS ORDERED: hydroCHLOROthiazide 25 MG TAB PO SCH (09:00)
--- NOTE | 2019-03-25 10:20 | DSES ---
DATE OF ADMISSION: 03/22/2019 DATE OF DISCHARGE/AMA: 03/25/2019 (Against medical advice) Cardiologists Dr. Roblero and Dr. Han consulted. PRIMARY DISCHARGE DIAGNOSES: Hypertensive urgency secondary to medical noncompliance. Active tobacco use. Morbid obesity. Medical noncompliance. Type 2 diabetes. Depression. Chronic psoriasis. Recreational drug use with marijuana. Metabolic syndrome. DISCHARGE MEDICATIONS: - Norvasc 10 mg daily - lisinopril 40 mg daily - hydrochlorothiazide 25 mg daily - labetalol 100 mg three times a day as needed for systolic pressure greater than 180 - aspirin 325 mg daily - sertraline 25 mg daily - nicotine patch 21 mg daily HOSPITAL COURSE: 48-year-old female who was noncompliant with her medications. She has not taken her medications and presented with complaints of dizziness, loss of appetite and chest pain. She called 911 and was brought into the emergency room where her blood pressure was found to be 245/113, given IV labetalol and we started lisinopril 40 twice a day, hydrochlorothiazide by mouth daily. 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 The patient did have recurrent episodes of uncontrolled blood pressure, with systolic pressure 220/92 and 228/98 for which she was given hydralazine, minoxidil, increasing doses of labetalol with subsequent heart rate reduction to 60. Chest x-ray was negative for cute cardiopulmonary disease. The patient remains without any chest pain or shortness of breath. Troponin leak was found at 0.3 to 0.6 with relative index peaking at 5.59 with total CK being normal. EKG showed incomplete right bundle branch block, nonspecific T wave abnormality. The patient was given nitroglycerin topically every 4 hours with improvement in blood pressure to 160s. This has been discontinued this morning. The patient was placed on Norvasc, lisinopril, hydrochlorothiazide and labetalol as needed. The patient says that she did not want to stay in the hospital but is agreeable to doing a renal ultrasound with Doppler to rule out renal artery stenosis. She was instructed that hemorrhagic stroke can occur should she have blood pressures that were persistently over 200 diastolic over 100, and despite this the patient wanted to sign out against medical advice (AMA). Due to changes in her medications Norvasc, lisinopril, hydrochlorothiazide, and labetalol and discontinuation of her nitroglycerin topical patch it was recommended that she stay for another 12 hours to monitor her progression with her blood pressure, which she has refused. The patient signed out against medical advice (AMA). LABORATORY DATA: White count 10.2, hemoglobin 15, hematocrit 47, platelet count 426. Sodium 139, potassium 4.2, chloride 108, bicarb 23, BUN 9, creatinine 0.8, glucose 160, hemoglobin A1c is 7.7, lactic acid 1.9, troponin 0.66. IMAGING STUDIES: 03/22 chest x-ray no acute cardiopulmonary disease. MTDD
[2019-03-25] MEDS: ASPIRIN ENTERIC 325 MG TAB PO SCH (10:59)
[2019-03-25] MEDS: SERTRALINE HCL 25 MG TABLET PO SCH (11:00)
[2019-03-25] MEDS: DOCUSATE SODIUM 100 MG CAP PO SCH (11:01)
[2019-03-25] MEDS: NICOTINE 21MG/24HR 1 EA TRANSDERMAL TD SCH (11:01)
[2019-03-25] MEDS: CALCIPOTRIENE CREAM 0.005% 60GM TOP SCH (11:02)
== END 2019-03-25 12:35 | disposition left against medical advice (07) | DRG 199 ==
LOC: M ED 14:49 → M ED INP 14:50 → M PCU 21:05 → OBSVTOIN 03-24 07:52
PROVIDERS: ADMIT Internal Medicine; ATTEND Internal Medicine
DX: I16.1 Hypertensive emergency (principal); E88.81 Metabolic syndrome and other insulin resistance; E66.01 Morbid (severe) obesity due to excess calories; Z68.42 Body mass index [BMI] 45.0-49.9, adult; R09.02 Hypoxemia; Z91.19 Patient's noncompliance with other medical treatment and regimen; F32.9 Major depressive disorder, single episode, unspecified; E11.9 Type 2 diabetes mellitus without complications; F17.200 Nicotine dependence, unspecified, uncomplicated; L40.8 Other psoriasis; F12.90 Cannabis use, unspecified, uncomplicated; Z79.899 Other long term (current) drug therapy; Z79.82 Long term (current) use of aspirin; K21.9 Gastro-esophageal reflux disease without esophagitis; F41.9 Anxiety disorder, unspecified; I10 Essential (primary) hypertension

== ENCOUNTER → 2019-04-10 | Outpatient (CLI) | payer BC ==
[~2019-04-10] MED LIST changes: +APAP325T4 PO; +BENA25CA4 PO; +HYDR25TAB PO; +LABE100T36 PO; +LISI40TA PO; +NAPR220C14 PO; +NICO21PAT TD; +SERT25TA88 PO; +[UNRECOGNIZED DRUG - CODE] PO
--- NOTE | 2019-04-10 12:11 | REP ---
REASON: Abdominal pain. PRIORS: None. Multiple ultrasonographic images of the abdominal aorta were obtained from the level of the celiac access to the aortoiliac bifurcation and the longitudinal and transverse scan planes along with color Doppler imaging. The maximal AP dimension of the abdominal aorta as measured in the longitudinal scan plane is 2.2 cm. There is no evidence of common iliac arterial ectasia. IMPRESSION: No evidence of abdominal aortic aneurysm. Electronically Signed by Ming Conroy DO 04/10/2019 02:03 P
--- NOTE | 2019-04-10 13:59 | REP ---
Renal vascular ultrasound: The study is performed for a symptomatic hypertensive emergency. Right Kidney: The right kidney measures 12.6 cm length. Extraparenchymal renal artery. Peak renal artery flow velocity the 322 cm/ sec Peak aortic velocity: 78.0 cm/sec Renal/aortic ratio: 4.12 Intraparenchymal renal arteries. Resistive index: upper pole 0.7 mid pole 0.67 lower pole 0.70 Acceleration time: upper pole 0.027 mid pole 0.033 lower pole 0.039 Left kidney: The left kidney measures 12.9 cm length. Extraparenchymal renal artery: Peak renal artery flow velocity: 247 cm/sec. Peak aortic velocity: 78.2 cm/sec Renal/aortic ratio: 3.16 Intraparenchymal renal arteries: Resistive index: Upper pole 0.70 mid pole 0.70 lower pole 0.68 Acceleration time: Upper pole 0.050 mid pole 0.045 lower pole 0.042 Impression: There are elevated peak flow velocities in the proximal, mid and distal extraparenchymal renal arteries bilaterally. This is compatible with bilateral renal artery stenosis. I recommend follow-up renal artery MRA or CTA for further evaluation and confirmation. Bilateral renal ultrasound: The right kidney measures 12.6 x 5.7 x 3.7 cm. The left kidney measures 12.9 by 5.0 x 4.6 cm. The kidneys are normal size. Renal cortical echogenicity is normal bilaterally. There is no hydronephrosis. There are no renal calculi. There are no solid or cystic renal masses. Bladder: With color Doppler assessment the left ureteral jet can be identified. Right ureteral jet cannot be identified, however, there is no hydronephrosis. Electronically Signed by Lino Hill MD 04/10/2019 01:50 P
== END ==
LOC: M RAD 07:40
PROVIDERS: ATTEND Family Medicine
DX: I16.0 Hypertensive urgency (principal)

== ENCOUNTER → 2019-04-22 | Outpatient (CLI) | payer BC ==
[~2019-04-22] MED LIST changes: +ISOVUE-370 76% 100ML VIAL (Q9967) As Ordered ONE; -SERT-155; +SERT25TA21 PO; -SERT25TA88 PO; +SERT50TA29
--- NOTE | 2019-04-23 06:28 | REP ---
Clinical: Renal artery stenosis. Technique: Axial angiographic images obtained in maximal arterial enhancement from the lung bases to the pubic symphysis using 100 ml Isovue 370 intravenous contrast material. Coronal and sagittal re-formations, coronal MIP images, volume rendered 3-D MPR images of the vasculature and bilateral renal arteries obtained. Findings: Mild atheromatous changes are identified predominantly involving the infrarenal abdominal aorta and through the bifurcation to common iliac arteries. The celiac axis, superior mesenteric artery, bilateral renal arteries, and inferior mesenteric artery all demonstrate normal satisfactory luminal diameter and enhancement without evidence for stenosis or occlusion. Specifically, the bilateral renal arteries are symmetric in diameter and without significant atheromatous changes appreciated. The kidneys demonstrate symmetric enhancement and appear normal. Hepatic steatosis noted without focal hepatic lesion. Spleen, pancreas, and bilateral adrenal glands are normal. Evidence for prior cholecystectomy. The enteric system is without obstruction or acute inflammatory process. Pelvis demonstrates normal bladder and age-appropriate uterus/adnexa. No ascites. No free air. Lung bases are clear. Visualized heart and pericardium grossly normal. Musculoskeletal structures are intact. Impression: 1. Normal angiographic evaluation through the abdomen and pelvis as detailed above. Specifically, symmetric normal appearance of the bilateral renal arteries. 2. Hepatic steatosis. 3. No further acute abdominopelvic pathology appreciated. Electronically Signed by Mando Travis MD 04/23/2019 06:19 A
== END ==
LOC: M RAD 15:08
PROVIDERS: ATTEND Family Medicine
DX: K76.0 Fatty (change of) liver, not elsewhere classified (principal); I70.1 Atherosclerosis of renal artery
CPT/HCPCS: 74174; Q9967

== ENCOUNTER → 2019-04-22 | Outpatient (CLI) | payer BC ==
[~2019-04-22] MED LIST changes: -ISOVUE-370 76% 100ML VIAL (Q9967) As Ordered ONE
[2019-04-22 10:23] LABS: HEMOGLOBIN A1c 8.7 %
[2019-04-22 10:34] LABS: BLOOD UREA NITROGEN 14 MG/DL (7-18); CALCIUM LEVEL 8.9 MG/DL (8.5-10.1); CARBON DIOXIDE LEVEL 26 MEQ/L (21-32); CHLORIDE LEVEL 103 MEQ/L (98-107); GLOMERULAR FILTRATION RATE > 60.0 (>58); GLUCOSE, FASTING 179 MG/DL (70-100); POTASSIUM SERUM 4.5 MEQ/L (3.5-5.1); SODIUM LEVEL 138 MEQ/L (136-145)
== END ==
LOC: M WUC 08:25
PROVIDERS: ATTEND Family Medicine
DX: R73.01 Impaired fasting glucose (principal); I70.1 Atherosclerosis of renal artery

== ENCOUNTER 2019-06-15 04:14 | Emergency (ER) | payer BC ==
[~2019-06-15] VITALS: Ht 152.4 cm; Wt 106.8 kg
[2019-06-15] MEDS ORDERED: AMLO5TAB6 PO (04:25)
[2019-06-15] MEDS ORDERED: PARO20TA3 PO (04:25)
[2019-06-15] MEDS ORDERED: ATEN50TA2 (04:25)
[2019-06-15] MEDS ORDERED: METF500T13 PO (04:25)
[2019-06-15] MEDS ORDERED: HEPARIN DRIP 25,000 UNITS in IV 1 EA IV SCH (04:40)
[2019-06-15 04:44] LABS: BASO # 0.1 10^3/uL (0.0-0.2); BASO % 0.4 % (0.0-1.0); EOS # 0.1 10^3/uL (0.0-0.5); HEMATOCRIT 43.1 % (36.0-47.0); HEMOGLOBIN 13.8 g/dl (12.0-15.5); LYMPH # 2.1 10^3/uL (1.5-5.0); LYMPH % 15.8 % (24.0-44.0); MEAN CORPUSCULAR HEMOGLOBIN 29.1 pg (27.0-33.0); MEAN CORPUSCULAR VOLUME 90.9 fl (80.0-96.0); MONO # 0.6 10^3/uL (0.0-0.8); MONO % 4.4 % (0.0-5.0); NEUTROPHILS # 10.4 10^3/uL (1.5-8.5); PLATELET COUNT, AUTOMATED 376 10^3/uL (150-450); RED BLOOD COUNT 4.74 10^6/uL (4.00-5.40); WHITE BLOOD COUNT 13.4 10^3/uL (4.0-10.0)
[2019-06-15] MEDS ORDERED: TENECTEPLASE 50 MG KIT (TNKase) (J3101 PER 1MG) IV ONE (04:45)
[2019-06-15] MEDS ORDERED: MORPHINE 2 MG/ML 1ML VIAL (J2270) IV ONE (04:45)
[2019-06-15] MEDS ORDERED: ASPIRIN 325 MG TAB PO ONE (04:45)
[2019-06-15] MEDS ORDERED: CLOPIDOGREL 300 MG TAB (PLAVIX) PO ONE (04:45)
[2019-06-15] MEDS ORDERED: HEPARIN SOD (PORCINE) 5000 UNITS/ML VIAL IV ONE (04:45)
[2019-06-15] MEDS ORDERED: NITROGLYCERIN IN D5W 25MG/250ML (100MCG/ML) As Ordered ONE (04:56)
[2019-06-15 04:58] LABS: INR 1.01
[2019-06-15 04:59] LABS: PARTIAL THROMBOPLASTIN TIME 25.7 SECONDS (25.0-38.4)
[2019-06-15] MEDS: NITROGLYCERIN/D5W 100MCG/ML 25 MG in IV 1 EA IV SCH ×2 (05:00→05:14)
[2019-06-15 05:04] LABS: ALBUMIN 3.2 GM/DL (3.2-5.2); ALT/SGPT 25 U/L (12-78); BILIRUBIN,DIRECT < 0.1 MG/DL (0.0-0.2); BILIRUBIN,TOTAL 0.3 MG/DL (0.2-1.0); LIPASE 234 U/L (73-393); TOTAL PROTEIN 7.3 GM/DL (6.4-8.2)
[2019-06-15] MEDS ORDERED: ASPI81CH33 PO (05:05)
[2019-06-15 05:11] LABS: BLOOD UREA NITROGEN 12 MG/DL (7-18); CALCIUM LEVEL 9.5 MG/DL (8.5-10.1); CARBON DIOXIDE LEVEL 25 MEQ/L (21-32); CHLORIDE LEVEL 103 MEQ/L (98-107); CK-MB VALUE MASS 7.4 NG/ML (<3.6); CPK CREATINE PHOSPHOKINASE 170 U/L (26-192); CREATININE FOR GFR 0.95 MG/DL (0.55-1.30); GLOMERULAR FILTRATION RATE > 60.0 (>58); GLUCOSE, FASTING 284 MG/DL (70-100); MB/CK RELATIVE INDEX 4.35 (< OR =4); POTASSIUM SERUM 4.2 MEQ/L (3.5-5.1); SODIUM LEVEL 135 MEQ/L (136-145); TROPONIN I 3.08 NG/ML (< 0.10)
[2019-06-15 05:38] VITALS: BP 117/66
--- NOTE | 2019-06-15 08:07 | REP ---
Portable chest x-ray: Single view. History: Chest pain. Comparison study: March 22, 2019. Findings: EKG monitoring electrodes overlie the chest. The lungs are well inflated and clear. The pleural angles are sharp. Heart size is normal. Pulmonary vasculature is not increased. Impression: No acute disease. Electronically Signed by Neo Forrester MD 06/15/2019 07:58 A
--- NOTE | 2019-06-15 16:49 | ECGEPIP ---
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
--- NOTE | 2019-06-15 16:50 | ECGEPIP ---
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
== END 2019-06-15 05:40 | disposition short-term general hospital (02) ==
LOC: M ED 04:14
DX: I21.09 ST elevation (STEMI) myocardial infarction involving other coronary artery of anterior wall (principal); I10 Essential (primary) hypertension; E11.9 Type 2 diabetes mellitus without complications; L40.9 Psoriasis, unspecified; F17.200 Nicotine dependence, unspecified, uncomplicated; Z88.1 Allergy status to other antibiotic agents; Z79.899 Other long term (current) drug therapy; Z79.84 Long term (current) use of oral hypoglycemic drugs; Z79.82 Long term (current) use of aspirin
CPT/HCPCS: 71045; 80048; 80076; 82550; 82553; 83690; 84484; 85025; 85610; 85730; 93005; 96374; 96375; 99285; J2270; J3101

== ENCOUNTER → 2019-08-20 | Outpatient (REF) | payer BC ==
[~2019-08-20] MED LIST changes: +AMLO5TAB6 PO; +ASPI81CH33 PO; +ATEN50TA2; +METF500T13 PO; +PARO20TA3 PO
[2019-08-20 18:58] LABS: BASO % 0.4 % (0.0-1.0); EOS # 0.2 10^3/uL (0.0-0.5); EOS % 2.4 % (0.0-3.0); HEMATOCRIT 42.4 % (36.0-47.0); HEMOGLOBIN 13.8 g/dl (12.0-15.5); LYMPH # 2.6 10^3/uL (1.5-5.0); LYMPH % 26.1 % (24.0-44.0); MEAN CORPUSCULAR HEMOGLOBIN 29.5 pg (27.0-33.0); MEAN CORPUSCULAR HGB CONC 32.5 g/dl (32.0-36.5); MEAN CORPUSCULAR VOLUME 90.6 fl (80.0-96.0); MONO # 0.7 10^3/uL (0.0-0.8); MONO % 7.4 % (0.0-5.0); NEUTROPHILS # 6.3 10^3/uL (1.5-8.5); NEUTROPHILS % 63.5 % (36.0-66.0); PLATELET COUNT, AUTOMATED 383 10^3/uL (150-450); RED BLOOD COUNT 4.68 10^6/uL (4.00-5.40); WHITE BLOOD COUNT 9.9 10^3/uL (4.0-10.0)
[2019-08-20 19:10] LABS: ALBUMIN 3.3 GM/DL (3.2-5.2); ALT/SGPT 24 U/L (12-78); BILIRUBIN,TOTAL 0.3 MG/DL (0.2-1.0); BLOOD UREA NITROGEN 7 MG/DL (7-18); C REACTIVE PROTEIN QUANTITATIV 1.63 MG/DL (0.00-0.30); CALCIUM LEVEL 8.8 MG/DL (8.5-10.1); CARBON DIOXIDE LEVEL 24 MEQ/L (21-32); CHLORIDE LEVEL 105 MEQ/L (98-107); CREATININE FOR GFR 0.61 MG/DL (0.55-1.30); GLOMERULAR FILTRATION RATE > 60.0 (>58); GLUCOSE, FASTING 109 MG/DL (70-100); POTASSIUM SERUM 4.4 MEQ/L (3.5-5.1); SODIUM LEVEL 138 MEQ/L (136-145); TOTAL PROTEIN 7.2 GM/DL (6.4-8.2)
[2019-08-20 19:25] LABS: HEPATITIS B SURFACE ANTIGEN NEGATIVE (NEGATIVE)
[2019-08-20 19:30] LABS: ERYTHROCYTE SEDIMENTATION RATE 24 mm/hr (0-20)
[2019-08-21 10:26] LABS: HEPATITIS C VIRUS ABY INDEX < 0.0 INDEX (<0.8)
== END ==
LOC: M SFHCRHEU 14:41
PROVIDERS: ATTEND Internal Medicine
DX: L40.0 Psoriasis vulgaris (principal)

== ENCOUNTER → 2020-01-25 | Outpatient (CLI) | payer BC ==
[~2020-01-25] MED LIST changes: +AMLO1TAB24 PO; -AMLO5TAB6 PO
[2020-01-25 16:46] LABS: BLOOD UREA NITROGEN 11 MG/DL (7-18); CALCIUM LEVEL 8.7 MG/DL (8.5-10.1); CARBON DIOXIDE LEVEL 25 MEQ/L (21-32); CHLORIDE LEVEL 106 MEQ/L (98-107); CREATININE FOR GFR 0.75 MG/DL (0.55-1.30); GLOMERULAR FILTRATION RATE > 60.0 (>58); GLUCOSE, FASTING 148 MG/DL (70-100); POTASSIUM SERUM 4.6 MEQ/L (3.5-5.1); SODIUM LEVEL 134 MEQ/L (136-145)
[2020-01-25 16:56] LABS: HEMOGLOBIN A1c 9.3 %
[2020-01-25 17:17] LABS: MALB URINE SIEMENS 37.7 MG/L; MAU/CREAT RATIO 26.1 MCG/MG (0.0-30.0)
== END ==
LOC: M WUC 13:16
PROVIDERS: ATTEND Family Medicine
DX: E11.9 Type 2 diabetes mellitus without complications (principal)

== ENCOUNTER 2020-02-07 04:31 | Emergency (ER) | payer BC ==
[2020-02-07] MEDS ORDERED: NITROGLYCERIN 0.4 MG SUBL TABLET ONE (04:59)
[2020-02-07] MEDS ORDERED: NITROGLYCERIN 0.4 MG SUBL TABLET As Ordered ONE (04:59)
[2020-02-07] MEDS ORDERED: ASPIRIN 81 MG CHEW TABLET ONE (04:59)
[2020-02-07] MEDS ORDERED: ASPIRIN 81 MG CHEW TABLET As Ordered ONE (04:59)
[2020-02-07] MEDS ORDERED: HEPARIN SOD (PORCINE) 5000UNITS/ML 1ML VIAL/SYRINGE ONE (06:44)
[2020-02-07] MEDS ORDERED: NITROGLYCERIN 2% OINT 1 GM *U/D* PKT ONE (06:44)
[2020-02-07] MEDS ORDERED: NITROGLYCERIN 2% OINT 1 GM *U/D* PKT As Ordered ONE (06:44)
[2020-02-07] MEDS ORDERED: CLOPIDOGREL 300 MG TAB (PLAVIX) ONE (06:44)
[2020-02-07] MEDS ORDERED: HEPARIN SOD (PORCINE) 5000UNITS/ML 1ML VIAL/SYRINGE As Ordered ONE (06:44)
[2020-02-07] MEDS ORDERED: HEPARIN 25,000 UNITS/250 ML D5W BAG (100 UNITS/ML) (J1644 PER 1000UNITS) ONE (06:44)
[2020-02-07] MEDS ORDERED: CLOPIDOGREL 300 MG TAB (PLAVIX) As Ordered ONE (06:45)
[2020-02-07] MEDS ORDERED: HEPARIN 25,000 UNITS/250 ML D5W BAG (100 UNITS/ML) (J1644 PER 1000UNITS) As Ordered ONE (06:45)
--- NOTE | 2020-03-23 15:53 | ECGEPIP ---
SINUS RHYTHM POSSIBLE LEFT ATRIAL ENLARGEMENT INCOMPLETE RIGHT BUNDLE BRANCH BLOCK ANTERIOR MYOCARDIAL INFARCTION, OF INDETERMINATE AGE ABNORMAL ECG INTERPRETATION BASED ON A DEFAULT AGE OF [address] & T-WAVE ABNORMALITY NO OLD AVAILABLE SEE SCANNED DOWNTIME REPORT MTDD
[2020-03-24 13:20] LABS: INR 1.2; PARTIAL THROMBOPLASTIN TIME 32.7 SECONDS (25.0-38.4); PROTHROMBIN TIME 15.5 SECONDS (11.8-14.0)
[2020-03-24 16:49] LABS: BASO % 0.3 % (0.0-1.0); EOS # 0.2 10^3/uL (0.0-0.5); EOS % 1.7 % (0.0-3.0); HEMOGLOBIN 15.4 g/dl (12.0-15.5); LYMPH # 1.9 10^3/uL (1.5-5.0); LYMPH % 15.3 % (24.0-44.0); MEAN CORPUSCULAR HEMOGLOBIN 29.8 pg (27.0-33.0); MEAN CORPUSCULAR HGB CONC 33.5 g/dl (32.0-36.5); MEAN CORPUSCULAR VOLUME 89.1 fl (80.0-96.0); MONO # 0.8 10^3/uL (0.0-0.8); MONO % 6.2 % (0.0-5.0); NEUTROPHILS # 9.5 10^3/uL (1.5-8.5); NEUTROPHILS % 76.2 % (36.0-66.0); PLATELET COUNT, AUTOMATED 371 10^3/uL (150-450); RED BLOOD COUNT 5.16 10^6/uL (4.00-5.40); WHITE BLOOD COUNT 12.5 10^3/uL (4.0-10.0)
[2020-04-20 15:09] LABS: ALBUMIN 3.1 GM/DL (3.2-5.2); ALT/SGPT 18 U/L (12-78); BILIRUBIN,DIRECT 0.1 MG/DL (0.0-0.2); BILIRUBIN,TOTAL 0.4 MG/DL (0.2-1.0); BLOOD UREA NITROGEN 9 MG/DL (7-18); CALCIUM LEVEL 8.7 MG/DL (8.5-10.1); CARBON DIOXIDE LEVEL 25 MEQ/L (21-32); CHLORIDE LEVEL 101 MEQ/L (98-107); CK-MB VALUE MASS 8.8 NG/ML (<3.6); CPK CREATINE PHOSPHOKINASE 132 U/L (26-192); GLOMERULAR FILTRATION RATE > 60.0 (>58); GLUCOSE, FASTING 255 MG/DL (70-100); MB/CK RELATIVE INDEX 6.67 (< OR =4); POTASSIUM SERUM 3.8 MEQ/L (3.5-5.1); SODIUM LEVEL 132 MEQ/L (136-145); TOTAL PROTEIN 7.8 GM/DL (6.4-8.2); TROPONIN I 2.15 NG/ML (< 0.10)
== END 2020-02-07 08:57 | disposition short-term general hospital (02) ==
LOC: M ED 04:31
DX: I21.4 Non-ST elevation (NSTEMI) myocardial infarction (principal); R06.02 Shortness of breath; I25.10 Atherosclerotic heart disease of native coronary artery without angina pectoris; I25.2 Old myocardial infarction; F17.210 Nicotine dependence, cigarettes, uncomplicated; Z82.49 Family history of ischemic heart disease and other diseases of the circulatory system; Z95.5 Presence of coronary angioplasty implant and graft; Z88.1 Allergy status to other antibiotic agents; Z79.899 Other long term (current) drug therapy; Z79.02 Long term (current) use of antithrombotics/antiplatelets; Z79.01 Long term (current) use of anticoagulants; Z79.84 Long term (current) use of oral hypoglycemic drugs
CPT/HCPCS: 71046; 80048; 80076; 82550; 82553; 84484; 85025; 85610; 85730; 93005; 96374; 99284; J1644; U0002

== ENCOUNTER → 2020-05-09 | Outpatient (REF) | payer BC ==
[2020-05-09 13:14] LABS: C REACTIVE PROTEIN QUANTITATIV 0.65 MG/DL (0.00-0.30)
[2020-05-11 15:09] LABS: ANCA-ATYPICAL <1:20 titer (Neg:<1:20); CYTOPLASMIC NEUTROP AB ANCA-C <1:20 titer (Neg:<1:20); PERINUCLEAR AB ANCA-P <1:20 titer (Neg:<1:20)
== END ==
LOC: M SFHCRHEU 08:37
PROVIDERS: ATTEND Internal Medicine
DX: H91.91 Unspecified hearing loss, right ear (principal)

== ENCOUNTER → 2020-06-16 | Outpatient (REF) | payer BC ==
[2020-06-16 15:48] LABS: BLOOD UREA NITROGEN 14 MG/DL (7-18); CREATININE FOR GFR 0.74 MG/DL (0.55-1.30); GLOMERULAR FILTRATION RATE > 60.0 (>58)
== END ==
LOC: M SFHCPLAZ 13:20
PROVIDERS: ATTEND Family Medicine
DX: H90.41 Sensorineural hearing loss, unilateral, right ear, with unrestricted hearing on the contralateral side (principal)

== ENCOUNTER → 2020-06-20 | Outpatient (CLI) | payer BC ==
[~2020-06-20] MED LIST changes: +PROHANCE 279.3MG/ML 15ML VIAL As Ordered ONE; +PROHANCE 279.3MG/ML 5ML VIAL As Ordered ONE
--- NOTE | 2020-06-20 19:19 | REPVR ---
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 Exam focused on the internal auditory canals. 3D rendering (Not supervised by radiologist): MIP and/or 3D reconstructed images were created by the technologist. Contrast material: PROHANCE; Contrast volume: 20 ml; Contrast route: INTRAVENOUS (IV); COMPARISON: No relevant prior studies available. FINDINGS: Brain: No acute infarct identified on the diffusion-weighted imaging. The T2 weighted imaging demonstrates foci of increased signal intensity in the deep white matter and moises, atypical for age. For example, left callosal/pericallosal and right parietal subcortical white matter lesions which demonstrate T2 shine through on the diffusion sequences. There are additional bilateral callosal/pericallosal white matter lesions which appear elongated in morphology raising question of primary demyelinating disease, although advanced for age chronic small vessel ischemic change is possible. No enhancing white matter lesions identified. Some lesions are associated with T1 hypointensity in keeping with profound focal gliosis. Ventricles: No ventriculomegaly. Mastoid air cells: Unremarkable. No effusions. Internal auditory canals: Unremarkable. 7th and 8th cranial nerves are unremarkable. No abnormal masses. Bones/joints: Unremarkable. IMPRESSION: 1. No acute intracranial abnormality seen. 2. No evidence of IAC mass. 3. White matter disease is atypical for patient age; consider primary demyelinating disease. Electronically signed by: Ngozi Graham On 06/20/2020 19:19:03 PM
== END ==
LOC: M RAD 16:46
PROVIDERS: ATTEND Family Medicine
DX: H90.41 Sensorineural hearing loss, unilateral, right ear, with unrestricted hearing on the contralateral side (principal); R90.82 White matter disease, unspecified
CPT/HCPCS: 70553; A9576

== ENCOUNTER → 2020-07-05 | Outpatient (REF) | payer BC ==
[~2020-07-05] MED LIST changes: -PROHANCE 279.3MG/ML 15ML VIAL As Ordered ONE; -PROHANCE 279.3MG/ML 5ML VIAL As Ordered ONE
[2020-07-05 17:06] LABS: APPEARANCE, URINE HAZY (CLEAR); BACTERIA, URINE AUTO NEGATIVE (NEGATIVE); BILIRUBIN, URINE AUTO NEGATIVE (NEGATIVE); BLOOD, URINE BLOOD 1+ (NEGATIVE); COLOR, URINE YELLOW (YELLOW); GLUCOSE, URINE (UA) AUTO 3+ mg/dL (NEGATIVE); KETONE, URINE AUTO NEGATIVE (NEGATIVE); LEUKOCYTE ESTERASE, URINE AUTO NEGATIVE (NEGATIVE); NITRITE, URINE AUTO NEGATIVE (NEGATIVE); PROTEIN, URINE AUTO NEGATIVE (NEGATIVE); RBC, URINE AUTO 1 /HPF (0-3); SPECIFIC GRAVITY URINE AUTO 1.031 (1.002-1.035); SQUAMOUS EPITHELIAL CELL UR AU 2 /HPF (0-6); UROBILINOGEN, URINE AUTO 0.2 mg/dL (0.0-2.0); WBC, URINE AUTO 1 /HPF (0-3)
== END ==
LOC: M SFHCPLAZ 14:39
PROVIDERS: ATTEND Family Medicine
DX: R30.0 Dysuria (principal)

== ENCOUNTER → 2020-08-30 | Outpatient (REF) | payer OTHER ==
[~2020-08-30] MED LIST changes: +HYDR-3490 PO; -HYDR25TAB PO; -LISI-538; +LISI20TA33; -LISI40TA PO; +LISI40TA4 PO
== END ==
LOC: M SFHCPLAZ 14:31
PROVIDERS: ATTEND Family Medicine
DX: E11.9 Type 2 diabetes mellitus without complications (principal)

== ENCOUNTER → 2020-10-04 | Outpatient (REF) | payer MEDICAID ==
[~2020-10-04] MED LIST changes: -LABE100T36 PO; +LABE100T5 PO
[2020-10-04 19:19] LABS: ALBUMIN 3.5 GM/DL (3.2-5.2); ALT/SGPT 22 U/L (12-78); BILIRUBIN,TOTAL 0.2 MG/DL (0.2-1.0); BLOOD UREA NITROGEN 10 MG/DL (7-18); CALCIUM LEVEL 8.9 MG/DL (8.5-10.1); CARBON DIOXIDE LEVEL 26 MEQ/L (21-32); CHLORIDE LEVEL 106 MEQ/L (98-107); CREATININE FOR GFR 0.63 MG/DL (0.55-1.30); GLOMERULAR FILTRATION RATE > 60.0 (>58); GLUCOSE, FASTING 184 MG/DL (70-100); POTASSIUM SERUM 4.5 MEQ/L (3.5-5.1); SODIUM LEVEL 138 MEQ/L (136-145); TOTAL PROTEIN 7.3 GM/DL (6.4-8.2)
[2020-10-04 19:28] LABS: MALB URINE SIEMENS 48.3 MG/L; MAU/CREAT RATIO 24.1 MCG/MG (0.0-30.0)
[2020-10-04 19:45] LABS: HEMOGLOBIN A1c 8.7 %
== END ==
LOC: M SFHCPLAZ 14:37
PROVIDERS: ATTEND Family Medicine
DX: E11.9 Type 2 diabetes mellitus without complications (principal); H90.41 Sensorineural hearing loss, unilateral, right ear, with unrestricted hearing on the contralateral side; L40.0 Psoriasis vulgaris

== ENCOUNTER 2022-01-18 13:44 | Emergency (ER) | payer MEDICAID ==
[~2022-01-18] VITALS: Ht 157.5 cm; Wt 92.9 kg
[~2022-01-18 13:44] MED LIST changes: -LISI20TA20 PO; +LISI20TA37 PO
[2022-01-18 16:58] VITALS: BP 160/76
== END 2022-01-18 17:09 | disposition home or self-care (01) ==
LOC: M ED 13:44
DX: J00 Acute nasopharyngitis [common cold] (principal); E11.9 Type 2 diabetes mellitus without complications; I11.0 Hypertensive heart disease with heart failure; I50.9 Heart failure, unspecified; I25.10 Atherosclerotic heart disease of native coronary artery without angina pectoris; I25.2 Old myocardial infarction; Z90.49 Acquired absence of other specified parts of digestive tract; F17.200 Nicotine dependence, unspecified, uncomplicated; Z79.82 Long term (current) use of aspirin; Z79.84 Long term (current) use of oral hypoglycemic drugs; Z79.899 Other long term (current) drug therapy

== ENCOUNTER → 2022-03-18 | Outpatient (CLI) | payer OTHER ==
[~2022-03-18] MED LIST changes: -LABE100T5 PO; +LABE100T71 PO
[2022-03-18 12:42] LABS: BASO % 0.3 % (0.0-1.0); EOS # 0.2 10^3/uL (0.0-0.5); EOS % 1.8 % (0.0-3.0); HEMATOCRIT 43.3 % (36.0-47.0); LYMPH % 18.1 % (24.0-44.0); MEAN CORPUSCULAR HEMOGLOBIN 29.9 pg (27.0-33.0); MEAN CORPUSCULAR HGB CONC 32.3 g/dl (32.0-36.5); MEAN CORPUSCULAR VOLUME 92.3 fl (80.0-96.0); MONO # 0.6 10^3/uL (0.0-0.8); MONO % 5.6 % (2.0-8.0); NEUTROPHILS # 8.3 10^3/uL (1.5-8.5); NEUTROPHILS % 73.8 % (36.0-66.0); PLATELET COUNT, AUTOMATED 354 10^3/uL (150-450); RED BLOOD COUNT 4.69 10^6/uL (4.00-5.40); WHITE BLOOD COUNT 11.2 10^3/uL (4.0-10.0)
[2022-03-18 12:59] LABS: HEMOGLOBIN A1c 7.3 %
[2022-03-18 13:25] LABS: ALBUMIN 3.3 GM/DL (3.2-5.2); ALT/SGPT 18 U/L (12-78); BILIRUBIN,TOTAL 0.4 MG/DL (0.2-1.0); BLOOD UREA NITROGEN 9 MG/DL (7-18); CARBON DIOXIDE LEVEL 26 MEQ/L (21-32); CHLORIDE LEVEL 106 MEQ/L (98-107); CHOLESTEROL LEVEL 131 MG/DL (<200); CHOLESTEROL RISK RATIO 3.119 (<5); CREATININE FOR GFR 0.73 MG/DL (0.55-1.30); FREE T4 1.18 NG/DL (0.76-1.46); GLOMERULAR FILTRATION RATE > 60.0 (>51); GLUCOSE, FASTING 153 MG/DL (70-100); HDL CHOLESTEROL 42 MG/DL (>40); LDL CHOLESTEROL 68 MG/DL (<100); MAGNESIUM LEVEL 2.2 MG/DL (1.8-2.4); NON-HDL-C 89 MG/DL; NT-PRO BNP 2106 PG/ML (<125); POTASSIUM SERUM 4.8 MEQ/L (3.5-5.1); SODIUM LEVEL 138 MEQ/L (136-145); TRIGLYCERIDES LEVEL 104 MG/DL (<150)
[2022-03-18 13:32] LABS: MALB URINE SIEMENS 20.7 MG/L; MAU/CREAT RATIO 15.5 MCG/MG (0.0-30.0)
[2022-03-20 21:07] LABS: ANA (HEP2) Negative (.)
== END ==
LOC: M LAB 11:48
PROVIDERS: ATTEND Family Medicine
DX: I10 Essential (primary) hypertension (principal)

== ENCOUNTER → 2022-04-11 | Outpatient (CLI) | payer OTHER | LOC: M RAD 09:34 | PROVIDERS: ATTEND Family Medicine | DX: F17.210 Nicotine dependence, cigarettes, uncomplicated (principal) ==

== ENCOUNTER → 2022-09-04 | Outpatient (REF) | payer OTHER ==
[2022-09-04 16:26] LABS: BASO % 0.4 % (0.0-1.0); EOS # 0.2 10^3/uL (0.0-0.5); EOS % 2.1 % (0.0-3.0); HEMATOCRIT 42.9 % (36.0-47.0); HEMOGLOBIN 14.1 g/dl (12.0-15.5); LYMPH # 2.9 10^3/uL (1.5-5.0); LYMPH % 32.8 % (24.0-44.0); MEAN CORPUSCULAR HEMOGLOBIN 31.3 pg (27.0-33.0); MEAN CORPUSCULAR HGB CONC 32.9 g/dl (32.0-36.5); MEAN CORPUSCULAR VOLUME 95.1 fl (80.0-96.0); MONO # 0.5 10^3/uL (0.0-0.8); NEUTROPHILS # 5.2 10^3/uL (1.5-8.5); NEUTROPHILS % 58.5 % (36.0-66.0); PLATELET COUNT, AUTOMATED 359 10^3/uL (150-450); RED BLOOD COUNT 4.51 10^6/uL (4.00-5.40); RHEUMATOID FACTOR QUANT < 3.5 IU/ML (<14)
[2022-09-04 16:31] LABS: ALBUMIN 3.5 G/DL (3.2-5.2); ALKALINE PHOSPHATASE 109 U/L (46-116); ALT/SGPT 32 U/L (7.0-40); AST/SGOT 20 U/L (<34); BILIRUBIN,TOTAL 0.3 MG/DL (0.3-1.2); BLOOD UREA NITROGEN 10 MG/DL (9-23); CALCIUM LEVEL 9.4 MG/DL (8.5-10.1); CARBON DIOXIDE LEVEL 26 MMOL/L (20-31); CHLORIDE LEVEL 103 MMOL/L (98-107); CREATININE FOR GFR 0.73 MG/DL (0.55-1.30); GLOMERULAR FILTRATION RATE > 60.0 (>51); GLUCOSE, FASTING 109 MG/DL (60-100); POTASSIUM SERUM 4.2 MMOL/L (3.5-5.1); SODIUM LEVEL 137 MMOL/L (136-145)
[2022-09-04 16:34] LABS: ERYTHROCYTE SEDIMENTATION RATE 36 mm/hr (0-30)
== END ==
LOC: M SFHCRHEU 14:10
PROVIDERS: ATTEND Internal Medicine Rheumatology
DX: L40.8 Other psoriasis (principal); H04.123 Dry eye syndrome of bilateral lacrimal glands; R53.83 Other fatigue

== ENCOUNTER → 2023-02-01 | Outpatient (CLI) | payer OTHER | LOC: M RAD 08:58 | PROVIDERS: ATTEND Internal Medicine Rheumatology | DX: L40.8 Other psoriasis (principal) ==

== ENCOUNTER → 2023-02-01 | Outpatient (CLI) | payer OTHER ==
[2023-02-01 11:24] LABS: HEMOGLOBIN A1c 6.3 % (4.0-6.0)
[2023-02-01 11:29] LABS: CREATININE, URINE 136.8 MG/DL; MAU/CREAT RATIO 5.1 MCG/MG (0.0-30.0)
[2023-02-01 11:35] LABS: ALBUMIN 3.6 G/DL (3.2-5.2); ALKALINE PHOSPHATASE 99 U/L (46-116); ALT/SGPT 12 U/L (7.0-40); AST/SGOT 11 U/L (<34); BILIRUBIN,TOTAL 0.4 MG/DL (0.3-1.2); BLOOD UREA NITROGEN 14 MG/DL (9-23); CALCIUM LEVEL 9.3 MG/DL (8.5-10.1); CARBON DIOXIDE LEVEL 25 MMOL/L (20-31); CHLORIDE LEVEL 107 MMOL/L (98-107); CHOLESTEROL LEVEL 222 MG/DL (<200); CHOLESTEROL RISK RATIO 6.34 (<5); CREATININE FOR GFR 0.85 MG/DL (0.55-1.30); FREE T4 1.22 NG/DL (0.89-1.76); GLOMERULAR FILTRATION RATE > 60.0 (>51); GLUCOSE, FASTING 112 MG/DL (60-100); LDL CHOLESTEROL 151.4 MG/DL (<100); POTASSIUM SERUM 4.3 MMOL/L (3.5-5.1); SODIUM LEVEL 140 MMOL/L (136-145); THYROID STIMULATING HORMONE 1.581 uIU/ML (0.55-4.78); TOTAL PROTEIN 6.9 G/DL (5.7-8.2); TRIGLYCERIDES LEVEL 178 MG/DL (<150)
[2023-02-01 12:29] LABS: BASO # 0.1 10^3/uL (0.0-0.2); BASO % 0.5 % (0.0-1.0); EOS # 0.2 10^3/uL (0.0-0.5); EOS % 2.1 % (0.0-3.0); HEMATOCRIT 45.7 % (36.0-47.0); HEMOGLOBIN 15.2 g/dl (12.0-15.5); LYMPH # 2.5 10^3/uL (1.5-5.0); LYMPH % 23.8 % (24.0-44.0); MEAN CORPUSCULAR HEMOGLOBIN 30.6 pg (27.0-33.0); MEAN CORPUSCULAR HGB CONC 33.3 g/dl (32.0-36.5); MONO # 0.8 10^3/uL (0.0-0.8); MONO % 7.7 % (2.0-8.0); NEUTROPHILS # 6.8 10^3/uL (1.5-8.5); NEUTROPHILS % 65.5 % (36.0-66.0); PLATELET COUNT, AUTOMATED 315 10^3/uL (150-450); RED BLOOD COUNT 4.97 10^6/uL (4.00-5.40); WHITE BLOOD COUNT 10.4 10^3/uL (4.0-10.0)
== END ==
LOC: M LAB 09:02
PROVIDERS: ATTEND Family Medicine
DX: I10 Essential (primary) hypertension (principal)

== ENCOUNTER → 2023-04-22 | Outpatient (CLI) | payer OTHER | LOC: M PLAIMG 12:26 | PROVIDERS: ATTEND Internal Medicine Rheumatology | DX: M46.1 Sacroiliitis, not elsewhere classified (principal); L40.8 Other psoriasis ==

== ENCOUNTER → 2023-09-11 | Outpatient (CLI) | payer OTHER ==
[~2023-09-11] MED LIST changes: +LABE100T40 PO; -LABE100T71 PO
[2023-09-11 12:57] LABS: CHOLESTEROL LEVEL 223 MG/DL (<200); CHOLESTEROL RISK RATIO 5.51 (<5); HDL CHOLESTEROL 40.4 MG/DL (>40); LDL CHOLESTEROL 145.8 MG/DL (<100); NON-HDL-C 182.6 MG/DL; TRIGLYCERIDES LEVEL 184 MG/DL (<150)
[2023-09-11 13:32] LABS: HEPATITIS C VIRUS ABY INDEX 0.03 INDEX (<0.8)
[2023-09-11 13:33] LABS: HEPATITIS B CORE ANTIBODY IGM NEGATIVE (NEGATIVE)
== END ==
LOC: M LAB 11:46
PROVIDERS: ATTEND Physician Assistant
DX: L40.0 Psoriasis vulgaris (principal)

== ENCOUNTER → 2023-09-11 | Outpatient (CLI) | payer OTHER ==
[2023-09-11 12:49] LABS: BASO % 0.3 % (0.0-1.0); EOS # 0.2 10^3/uL (0.0-0.5); HEMOGLOBIN 15.1 g/dl (12.0-15.5); LYMPH # 2.4 10^3/uL (1.5-5.0); LYMPH % 23.5 % (24.0-44.0); MEAN CORPUSCULAR HEMOGLOBIN 29.2 pg (27.0-33.0); MEAN CORPUSCULAR HGB CONC 32.8 g/dl (32.0-36.5); MEAN CORPUSCULAR VOLUME 88.8 fl (80.0-96.0); MONO # 0.7 10^3/uL (0.0-0.8); MONO % 6.9 % (2.0-8.0); NEUTROPHILS # 6.9 10^3/uL (1.5-8.5); NEUTROPHILS % 66.9 % (36.0-66.0); PLATELET COUNT, AUTOMATED 340 10^3/uL (150-450); RED BLOOD COUNT 5.18 10^6/uL (4.00-5.40); WHITE BLOOD COUNT 10.3 10^3/uL (4.0-10.0)
[2023-09-11 12:56] LABS: ALBUMIN 3.3 G/DL (3.2-5.2); ALKALINE PHOSPHATASE 117 U/L (46-116); ALT/SGPT 10 U/L (7.0-40); AST/SGOT 8 U/L (<34); BILIRUBIN,TOTAL 0.3 MG/DL (0.3-1.2); BLOOD UREA NITROGEN 14 MG/DL (9-23); CALCIUM LEVEL 8.3 MG/DL (8.5-10.1); CARBON DIOXIDE LEVEL 27 MMOL/L (20-31); CHLORIDE LEVEL 109 MMOL/L (98-107); CREATININE FOR GFR 0.77 MG/DL (0.55-1.30); GLOMERULAR FILTRATION RATE > 60.0 (>51); GLUCOSE, FASTING 115 MG/DL (60-100); POTASSIUM SERUM 4.4 MMOL/L (3.5-5.1); SODIUM LEVEL 140 MMOL/L (136-145)
[2023-09-11 12:59] LABS: ERYTHROCYTE SEDIMENTATION RATE 68 mm/hr (0-30)
== END ==
LOC: M LAB 11:45
PROVIDERS: ATTEND Internal Medicine Rheumatology
DX: L40.8 Other psoriasis (principal); H04.123 Dry eye syndrome of bilateral lacrimal glands; R53.83 Other fatigue

== ENCOUNTER → 2023-12-05 | Outpatient (REF) | payer OTHER ==
[2023-12-05 17:50] LABS: ALBUMIN 3.4 G/DL (3.2-5.2); ALKALINE PHOSPHATASE 116 U/L (46-116); ALT/SGPT 11 U/L (7.0-40); AST/SGOT < 8 U/L (<34); BILIRUBIN,TOTAL 0.3 MG/DL (0.3-1.2); BLOOD UREA NITROGEN 17 MG/DL (9-23); CALCIUM LEVEL 9.2 MG/DL (8.5-10.1); CARBON DIOXIDE LEVEL 23 MMOL/L (20-31); CHLORIDE LEVEL 109 MMOL/L (98-107); CHOLESTEROL LEVEL 221 MG/DL (<200); CHOLESTEROL RISK RATIO 5.78 (<5); CREATININE FOR GFR 0.84 MG/DL (0.55-1.30); GLOMERULAR FILTRATION RATE > 60.0 (>51); GLUCOSE, FASTING 119 MG/DL (60-100); HDL CHOLESTEROL 38.2 MG/DL (>40); LDL CHOLESTEROL 151.8 MG/DL (<100); NON-HDL-C 182.8 MG/DL; POTASSIUM SERUM 4.6 MMOL/L (3.5-5.1); SODIUM LEVEL 140 MMOL/L (136-145); TOTAL PROTEIN 7.2 G/DL (5.7-8.2); TRIGLYCERIDES LEVEL 155 MG/DL (<150)
[2023-12-05 17:52] LABS: THYROID STIMULATING HORMONE 1.445 uIU/ML (0.55-4.78)
[2023-12-05 17:53] LABS: TOTAL 25(OH) VITAMIN D 8.3 NG/ML (20.0-100.0)
[2023-12-05 18:17] LABS: HIV 1&2 SCREEN NEGATIVE (NEGATIVE)
[2023-12-05 18:20] LABS: HEMOGLOBIN A1c 6.2 % (4.0-6.0)
[2023-12-05 18:25] LABS: HEPATITIS C VIRUS ABY INDEX 0.03 INDEX (<0.8)
== END ==
LOC: M LAB REF 17:13
PROVIDERS: ATTEND Physician Assistant
DX: Z11.9 Encounter for screening for infectious and parasitic diseases, unspecified (principal); E66.9 Obesity, unspecified; E55.9 Vitamin D deficiency, unspecified

== ENCOUNTER → 2024-04-16 | Outpatient (REF) | payer OTHER ==
[2024-04-16 18:54] LABS: BLOOD UREA NITROGEN 22 MG/DL (9-23); CALCIUM LEVEL 9.7 MG/DL (8.5-10.1); CARBON DIOXIDE LEVEL 29 MMOL/L (20-31); CHLORIDE LEVEL 102 MMOL/L (98-107); CREATININE FOR GFR 0.88 MG/DL (0.55-1.30); GLOMERULAR FILTRATION RATE > 60.0 (>51); GLUCOSE, FASTING 118 MG/DL (60-100); MAGNESIUM LEVEL 2.1 MG/DL (1.8-2.4); POTASSIUM SERUM 4.1 MMOL/L (3.5-5.1); SODIUM LEVEL 139 MMOL/L (136-145)
== END ==
LOC: M LAB REF 16:31
PROVIDERS: ATTEND Physician Assistant
DX: I10 Essential (primary) hypertension (principal)

== ENCOUNTER 2024-06-23 10:08 | Emergency (ER) | payer OTHER ==
[~2024-06-23] VITALS: Ht 154.9 cm; Wt 97.7 kg
[2024-06-23] MEDS ORDERED: SODIUM BICARBONATE 8.4% INJ 50ML SYRINGE ONE (10:09)
[2024-06-23] MEDS ORDERED: CALCIUM CHLORIDE 10% 1 GM/10 ML SYR ONE (10:09)
[2024-06-23] MEDS ORDERED: EPINEPHrine 1MG/10ML SYRINGE 1.5IN ONE (10:09)
[2024-06-23] MEDS ORDERED: MAGNESIUM SULFATE 1GM/2ML (8MEQ/2ML) VIAL ONE (10:09)
[2024-06-23] MEDS: NS (Normal Saline) 0.9% 1,000 ML IV ONE (11:55)
[2024-06-23] MEDS ORDERED: ISOVUE-370 76% 100ML VIAL As Ordered ONE (12:08)
[2024-06-23 12:12] LABS: HEMOGLOBIN 13.9 g/dl (12.0-15.5); MEAN CORPUSCULAR HEMOGLOBIN 32.2 pg (27.0-33.0); MEAN CORPUSCULAR HGB CONC 35.6 g/dl (32.0-36.5); MEAN CORPUSCULAR VOLUME 90.3 fl (80.0-96.0); PLATELET COUNT, AUTOMATED 225 10^3/uL (150-450); RED BLOOD COUNT 4.32 10^6/uL (4.00-5.40); WHITE BLOOD COUNT 14.1 10^3/uL (4.0-10.0)
[2024-06-23 12:45] LABS: ATYPICAL LYMPH 1 % (0-5); LYMPHOCYTES 3 % (16-44); METAMYELOCYTES 1 % (0-0); MONOCYTES 1 % (0-5); NEUTROPHILS 81 % (28-66)
[2024-06-23 12:46] VITALS: BP 98/54; TEMP 98.2; O2SAT 98
[2024-06-23 12:46] LABS: PLATELET ESTIMATE NORMAL (NORMAL)
[2024-06-23] MEDS ORDERED: ETOMIDATE INJ 20MG/10ML VIAL ONE (13:00)
[2024-06-23] MEDS ORDERED: ROCURONIUM BROMIDE 50MG/5ML VIAL ONE (13:00)
[2024-06-23 13:27] LABS: CALCIUM LEVEL 8.6 MG/DL (8.5-10.1); CREATININE FOR GFR 1.17 MG/DL (0.55-1.30); GLOMERULAR FILTRATION RATE 51.5 (>51); POTASSIUM SERUM 2.9 MMOL/L (3.5-5.1)
== END 2024-06-23 17:20 | disposition expired ==
LOC: M ED 10:08
DX: M72.6 Necrotizing fasciitis (principal); I46.9 Cardiac arrest, cause unspecified; I10 Essential (primary) hypertension; I25.2 Old myocardial infarction; F17.210 Nicotine dependence, cigarettes, uncomplicated; Z88.1 Allergy status to other antibiotic agents; Z79.1 Long term (current) use of non-steroidal anti-inflammatories (NSAID); Z79.84 Long term (current) use of oral hypoglycemic drugs; Z79.899 Other long term (current) drug therapy
CPT/HCPCS: 31500; 72193; 80047; 80048; 83605; 85025; 87040; 92950; 96360; 96361; 99291; J0171; J3475; Q9967